=== PATIENT | female | born 1950 | race African-American/Black ===

== ENCOUNTER 2017-12-02 12:32 | Outpatient (CLI) | payer MEDICARE | END 2017-12-02 12:33 | disposition home or self-care (01) | LOC: BICULT 12:32 | PROVIDERS: ATTEND Internal Medicine Nephrology | DX: I12.9 Hypertensive chronic kidney disease with stage 1 through stage 4 chronic kidney disease, or unspecified chronic kidney disease (principal); N18.3 Chronic kidney disease, stage 3 (moderate) | CPT/HCPCS: 76770 ==

== ENCOUNTER 2018-03-10 22:42 | Emergency (ER) | payer MEDICARE ==
[2018-03-10 23:29] LABS: #Basophils 0.1 thou/uL (0.0-0.2); #Eosinphils 0.1 thou/uL (0.0-0.7); #Lymphocytes 4.4 thou/uL (1.20-3.40); #Monocytes 0.9 thou/uL (0.11-0.59); #Neutrophils 9.3 thou/uL (1.40-6.50); %Basophils 0.8 % (0.0-1.0); %Eosinophils 0.9 % (0.0-10.0); %Lymphocytes 29.6 % (21.0-51.0); %Monocytes 6.2 % (0.0-10.0); %Neutrophils 62.5 % (42.0-75.0); Hemoglobin 11.7 g/dL (12.0-16.0); Mean Corpuscular HGB CONC 34.4 g/dL (32.0-36.0); Mean Corpuscular Hemoglobin 26.9 pg (27.0-31.0); Mean Corpuscular Volume 78.4 fl (81.0-99.0); Mean Platelet Volume 8.9 fL (7.4-10.4); Platelet Count 209 thou/uL (130-400); RBC Distribution Width 16.3 % (11.5-14.5); Red Blood Cell (RBC) Count 4.35 mill/uL (4.20-5.40); White Blood Cell (WBC) Count 14.9 thou/uL (4.8-10.8)
[2018-03-10 23:46] LABS: ALT (SGPT) 11 U/L (8-55); AST (SGOT) 11 U/L (5-34); Albumin 4.5 g/dL (3.4-4.8); Alkaline Phosphatase 90 U/L (40-150); Anion Gap 17 mmol/L (10-20); BUN (Urea Nitrogen) 33 mg/dL (9.8-20.1); Bilirubin, Total 0.2 mg/dL (0.2-1.2); Calc. Creatinine Clearance 0 mL/min (70-130); Calcium 9.6 mg/dL (7.8-10.44); Carbon Dioxide 20 mmol/L (23-31); Chloride 102 mmol/L (98-107); Estimated GFR-MDRD 42; Globulin 3.7 g/dL (2.4-3.5); Glucose 216 mg/dL (80-115); Potassium 4.7 mmol/L (3.5-5.1); Protein, Total 8.2 g/dL (6.0-8.3); Sodium 134 mmol/L (136-145)
[2018-03-10 23:57] LABS: Base Excess-Venous -0.1 mmol/L (0 (+/- 2.5)); Bicarbonate (HCO3v) 24.6 mmol/L (1.0-85.0); CO2 Tension (PvCO2) 39.2 mmHg (41.0-51.0); Calcium, Ionized 1.09 mmol/L (1.12-1.32); Hemoglobin - Calc 16.4 g/dL (12.0-18.0); O2 Tension (PvO2) 31.1 mmHg (35.0-45.0); Potassium 7.1 mmol/L (3.4-4.7); T. Carbon Dioxide 25.8 mmol/L (1.0-85.0); pH (Venous) 7.405 (7.35-7.45); vO2 Saturation-calc 60.3 % (94-98)
[2018-03-11] LABS: Bilirubin Negative (Negative); Blood, Urine Negative (Negative); Clarity CLEAR (Clear); Glucose, Urine (Dipstick) Negative (Negative); Leukocyte Trace (Negative); Nitrite Negative (Negative); Protein, Urine (Dipstick) Negative (Neg-Trace); Specific Gravity, Urine 1.009 (1.002-1.036); Urobilinogen 0.2 mg/dL (0.2-1.0); pH, Urine 5.5 (5.0-9.0)
[2018-03-11 00:03] LABS: Bacteria/HPF None Seen HPF (None Seen); Hyaline Casts/LPF 0-3 HYALINE CAST LPF (0-3 Hyaline); RBC/HPF 0-3 HPF (0-3); Squamous Epithelial 0-3 HPF (0-3); WBC/HPF 0-3 HPF (0-3)
[2018-03-11] MEDS ORDERED: hydrALAZINE 20 MG/ML VIAL ONE (00:15)
[2018-03-11] MEDS ORDERED: Insulin Regular 300 UNITS/3 ML VIAL ONE (00:15)
== END 2018-03-11 00:58 | disposition home or self-care (01) ==
LOC: ERS 22:42
DX: E11.65 Type 2 diabetes mellitus with hyperglycemia (principal); I34.1 Nonrheumatic mitral (valve) prolapse
CPT/HCPCS: 36415; 36416; 81003; 81015; 82010; 82330; 82803; 85025; 96360; J0360; J1815

== ENCOUNTER 2018-09-29 12:29 | Observation (INO) | payer MEDICARE ==
[2018-09-29] MEDS ORDERED: Nitroglycerin 2% Ointment 1 INCH/1 GM Packet ONE (13:08)
[2018-09-29] MEDS ORDERED: Metoclopramide HCl 10 MG/2 ML VIAL ONE (13:08)
[2018-09-29] MEDS ORDERED: diphenhydrAMINE 50 MG/ML VIAL ONE (13:11)
[2018-09-29 13:15] LABS: #Basophils 0.1 thou/uL (0.0-0.2); #Eosinphils 0.2 thou/uL (0.0-0.7); #Lymphocytes 3.4 thou/uL (1.20-3.40); #Monocytes 0.4 thou/uL (0.11-0.59); #Neutrophils 4.7 thou/uL (1.40-6.50); %Basophils 1.5 % (0.0-1.0); %Eosinophils 2.3 % (0.0-10.0); %Monocytes 4.8 % (0.0-10.0); %Neutrophils 53.5 % (42.0-75.0); Hemoglobin 12.2 g/dL (12.0-16.0); Mean Corpuscular HGB CONC 33.3 g/dL (32.0-36.0); Mean Corpuscular Hemoglobin 25.9 pg (27.0-31.0); Mean Corpuscular Volume 77.8 fL (78.0-98.0); Platelet Count 204 thou/uL (130-400); Red Blood Cell (RBC) Count 4.69 mill/uL (4.20-5.40); White Blood Cell (WBC) Count 8.9 thou/uL (4.8-10.8)
--- NOTE | 2018-09-29 13:24 | RAD ---
PORTABLE CHEST 1 VIEW: DATE: 09/29/2018. TIME: 1:01 p.m. HISTORY: Chest pain and shortness of breath. FINDINGS: Comparison is made with the arteriovenous malformation of 12/15/2016. The heart size is normal. The lungs are expanded without focal areas of consolidation, pneumothorace s, or pleural effusions. IMPRESSION: No radiographic evidence of acute cardiopulmonary process. POS: OFF
[2018-09-29 13:27] LABS: ALT (SGPT) 27 U/L (8-55); AST (SGOT) 22 U/L (5-34); Albumin 4.6 g/dL (3.4-4.8); Alkaline Phosphatase 109 U/L (40-150); Anion Gap 18 mmol/L (10-20); BUN (Urea Nitrogen) 29 mg/dL (9.8-20.1); Bilirubin, Total 0.4 mg/dL (0.2-1.2); CK (CPK) 59 U/L (29-168); Calc. Creatinine Clearance 0 mL/min (70-130); Calcium 10.4 mg/dL (7.8-10.44); Carbon Dioxide 18 mmol/L (23-31); Chloride 106 mmol/L (98-107); Estimated GFR-MDRD 38; Globulin 4.3 g/dL (2.4-3.5); Glucose 196 mg/dL (80-115); Lipase 70 U/L (8-78); Potassium 4.3 mmol/L (3.5-5.1); Protein, Total 8.9 g/dL (6.0-8.3); Sodium 138 mmol/L (136-145)
--- NOTE | 2018-09-29 13:30 | CT ---
CT BRAIN WITHOUT CONTRAST: HISTORY: Headache. FINDINGS: No evidence of acute infarct, hemorrhage, midline shift, or abnormal extraaxial fluid collections is seen. The ventricular size is appropriate and the basilar cisterns patent. The bony calvarium is in tact. The visualized paranasal sinuses and mastoid air cells are well aerated. IMPRESSION: NO CT evidence of acute intracranial process. POS: OFF
[2018-09-29 13:46] LABS: Base Excess-Venous -3.7 mmol/L (0 (+/- 2.5)); Bicarbonate (HCO3v) 22.8 mmol/L (22.0-29.0); CO2 Tension (PvCO2) 46.4 mmHg (41.0-51.0); Calcium, Ionized 1.21 mmol/L (1.12-1.32); Hemoglobin - Calc 11.9 g/dL (12.0-18.0); O2 Tension (PvO2) 56.3 mmHg (35.0-45.0); Potassium 4.3 mmol/L (3.4-4.7); T. Carbon Dioxide 24.2 mmol/L (1.0-85.0); pH (Venous) 7.299 (7.35-7.45); vO2 Saturation-calc 85.5 % (94-98)
--- NOTE | 2018-09-29 14:55 | PDOC.FPRHP ---
- History of Present Illness Chief Complaint: CP, HORTON History of Present Illness: This is a 67 yo who came in with chest pain going on for 1-2 weeks. Pertinent PMH of DM, cath 2 years ago with no stents per patient, echo 09.14.18 patient does not know results, and HTN. Patient states pain is left sided, comes and goes, radiates to neck and l shoulder, made worse with movement. Patient states she has had occassional cough. She sleeps elevated on pillows at night and gets more short of breath when laying down. Headache described as band-like going on for 1-2 weeks. Worse with light, sounds. Occasional blurry vision. Charecterized as sharp. Made somewhat better with tylenol. Nausea, but no vomiting. ED Course: NS 1L, reglan, benadryl, nitropaste - Allergies/Adverse Reactions Allergies Allergy/AdvReac Type Severity Reaction Status Date / Time erythromycin base Allergy Verified 12/15/16 23:10 Iodinated Contrast- Oral and Allergy Anaphylaxis Verified 01/18/17 17:13 IV Dye [Iodinated Contrast Media - Oral and] Sulfa (Sulfonamide Allergy Verified 12/15/16 23:10 Antibiotics) - Home Medications Medication Instructions Recorded Confirmed Type Aspirin [Aspirin Chewable Tablet] 81 mg PO DAILY 12/15/16 01/18/17 History Cyclobenzaprine [Flexeril] 10 mg PO TID PRN 12/15/16 01/18/17 History Hydrochlorothiazide 12.5 mg PO DAILY 12/15/16 01/18/17 History Lisinopril 10 mg PO DAILY 12/15/16 01/18/17 History Metoprolol Tartrate 50 mg PO BID 12/15/16 01/18/17 History Omeprazole 40 mg PO DAILY 12/15/16 01/18/17 History metFORMIN HCl [Metformin ER 500 mg PO BID 12/15/16 01/18/17 History Gastric] Atorvastatin Calcium 40 mg PO HS 09/29/18 09/29/18 History NIFEdipine [Nifedipine ER] 90 mg PO DAILY 09/29/18 09/29/18 History sitaGLIPtin Phosphate [Januvia] 25 mg PO DAILY 09/29/18 09/29/18 History - History PMHx: migraines, DM, HTN, GERD PSHx: cath 2 years ago no stents, echo 09/14/18, hysterctomy, benign rt breast mass, hernia FHx: denies fm hx of heart disease Social: no tobacco, no alcohol, no drugs - Review of Systems General: denies: fever/chills, weight/appetite/sleep changes, fatigue Eyes: reports: vision changes (see hpi). denies: eye pain ENT: denies: nasal congestion, rhinorrhea Respiratory: denies: cough, congestion, shortness of breath, exercise intolerance Cardiovascular: reports: chest pain, orthopnea. denies: palpitation, edema Gastrointestinal: reports: nausea. denies: vomiting, diarrhea, constipation, abdominal pain Genitourinary: denies: dysuria, polyuria Skin: denies: rashes, itching Musculoskeletal: denies: pain, arthritis/arthralgias Neurological: denies: numbness, weakness - Vital signs BP: 142/82 HR: 71 RR: 20 Tmax: 98.2 Pox: 99% on RA Wt: 72kg General: NAD, alert and oriented x3 HEENT: PERRLA, EOMI, normal sclera, oropharynx without erythema or exudate, T Neck: Supple. Full ROM. Heart/Cardiovascular System: No r/m/g. RRR. Cap refill < 3 seconds, good pulses in all extremities Lungs/Respiratory System: clear to auscultation bilaterally. No increased work of breathing. Room air. Abdomen/Gastro-Intestinal System: non-tender, normal bowel sounds, no masses, no organomegaly, old surgical scar left inguinal hernia Extremeties: Warm extremities. No cyanosis or edema. Neuro: No gross deficits appreciated. CN 2-12 grossly intact Psychiatry: Awake, Alert and cooperative with exam Skin/ Integumentory: No lesions, rashes, or ulcers Musculoskeletal: Full ROM, Strength 5/5 in all 4 extremities FMR H&P: Results - Labs Result Diagrams: 09/29/18 12:58 09/29/18 12:58 Lab results: WBC 8.9 thou/uL (4.8-10.8) 09/29/18 12:58 Hgb 12.2 g/dL (12.0-16.0) 09/29/18 12:58 Hct 36.5 % (36.0-47.0) 09/29/18 12:58 MCV 77.8 fL (78.0-98.0) L 09/29/18 12:58 Plt Count 204 thou/uL (130-400) 09/29/18 12:58 Neutrophils % 53.5 % (42.0-75.0) 09/29/18 12:58 VBG pCO2 46.4 mmHg (41.0-51.0) 09/29/18 13:43 VBG pO2 56.3 mmHg (35.0-45.0) H 09/29/18 13:43 Sodium 138 mmol/L (136-145) 09/29/18 12:58 Potassium 4.3 mmol/L (3.5-5.1) 09/29/18 12:58 Chloride 106 mmol/L (98-107) 09/29/18 12:58 Carbon Dioxide 18 mmol/L (23-31) L 09/29/18 12:58 BUN 29 mg/dL (9.8-20.1) H 09/29/18 12:58 Creatinine 1.62 mg/dL (0.6-1.1) H 09/29/18 12:58 Glucose 196 mg/dL (80-115) H 09/29/18 12:58 Calcium 10.4 mg/dL (7.8-10.44) 09/29/18 12:58 Total Bilirubin 0.4 mg/dL (0.2-1.2) 09/29/18 12:58 AST 22 U/L (5-34) 09/29/18 12:58 ALT 27 U/L (8-55) 09/29/18 12:58 Alkaline Phosphatase 109 U/L (40-150) 09/29/18 12:58 Creatine Kinase 59 U/L (29-168) 09/29/18 12:58 B-Natriuretic Peptide 43.4 pg/mL (0-100) 09/29/18 12:58 Serum Total Protein 8.9 g/dL (6.0-8.3) H 09/29/18 12:58 Albumin 4.6 g/dL (3.4-4.8) 09/29/18 12:58 Lipase 70 U/L (8-78) 09/29/18 12:58 FMR H&P: A/P - Problem List (1) Stable angina Current Visit: Yes Status: Acute Code(s): I20.8 - OTHER FORMS OF ANGINA PECTORIS (2) Peripheral neuropathy Current Visit: Yes Status: Acute Code(s): G62.9 - POLYNEUROPATHY, UNSPECIFIED (3) Diabetes type 2, controlled Current Visit: No Status: Acute Code(s): E11.9 - TYPE 2 DIABETES MELLITUS WITHOUT COMPLICATIONS (4) GERD (gastroesophageal reflux disease) Current Visit: No Status: Acute Code(s): K21.9 - GASTRO-ESOPHAGEAL REFLUX DISEASE WITHOUT ESOPHAGITIS Qualifiers: (5) HTN (hypertension) Current Visit: No Status: Acute Code(s): I10 - ESSENTIAL (PRIMARY) HYPERTENSION Qualifiers: (6) Peptic ulcer disease Current Visit: No Status: Acute Code(s): K27.9 - PEPTIC ULC, SITE UNSP, UNSP AC OR CHR, W/O HEMOR OR PERF - Plan # Stable Angina -HEART: 6 - negative EKG, negative trop, will trend trop - consulted cardiology, appreciate recs - Cath 2 years ago no stents, Echo 09/14/18 w/ Dr. Ryan - stress vs cath - ASA, statin # DM - last A1C 5.3 - januvia, metformin - SSI, Accuchecks - b-hydroxybutyrate 0.39, pH 7.3, anion gap 17 - will re-check BMP at 1600 # Headache, suspect migraine - s/p reglan, benadryl, 1L NS in ED - improving # Peripheral Neuropathy - pins and needles in L toe - suspect 2/2 DM - consider gabapentin if needed # GERD Diet: NPO until Cards eval Fluids: tko Code: full Dispo: 1-2 days pending cards eval FMR H&P: Upper Level - Plan Date/Time: 09/29/18 1450 I, [], have evaluated this patient and agree with findings/plan as outlined by manager of internal audit resident. Pertinent changes/additions are listed here. Addendum - Attending - Attending Attestation Date/Time: 09/29/18 1610 I personally evaluated the patient and discussed the management with Dr. Fitzpatrick. I agree with and repeated the History, Examination, Assessment and Plan documented above with any addition or exceptions noted below. Typical cp with pressure, radiation, w/w exertion b/w rest and NTG and a/w nausea/diaphoresis. Will d/w cards. I feel bhb not 2/2 DKA. Will hydrate, recheck BMP, send UA.
[2018-09-29 15:03] LABS: Bilirubin Negative (Negative); Blood, Urine Negative (Negative); Clarity CLOUDY (Clear); Glucose, Urine (Dipstick) Negative (Negative); Leukocyte Negative (Negative); Nitrite Negative (Negative); Protein, Urine (Dipstick) Negative (Neg-Trace); Urobilinogen 0.2 mg/dL (0.2-1.0); pH, Urine 5.5 (5.0-9.0)
[2018-09-29] MEDS ORDERED: Ondansetron PF 4 MG/2 ML Vial IVP PRN (15:33)
[2018-09-29] MEDS ORDERED: Zolpidem Tartrate 5 MG TAB PO PRN (15:33)
[2018-09-29] MEDS ORDERED: Dextrose 5% in Water 1,000 ML IV PRN (15:33)
[2018-09-29] MEDS ORDERED: HumaLOG 300 UNITS/3 ML VIAL SC PRN (15:33)
[2018-09-29] MEDS ORDERED: Dextrose 50% Abboject 50 ML SYRINGE SLOW IVP PRN (15:33)
[2018-09-29 15:43] VITALS: BMI 29.4
[2018-09-29] MEDS ORDERED: Enoxaparin Sodium 40 MG/0.4 ML SYRINGE SC SCH (15:45)
[2018-09-29] MEDS ORDERED: Cyclobenzaprine 10 MG TAB PO PRN (16:00)
[2018-09-29 16:32] LABS: Anion Gap 17 mmol/L (10-20); BUN (Urea Nitrogen) 28 mg/dL (9.8-20.1); Calc. Creatinine Clearance 49 mL/min (70-130); Calcium 9.6 mg/dL (7.8-10.44); Carbon Dioxide 17 mmol/L (23-31); Chloride 111 mmol/L (98-107); Estimated GFR-MDRD 50; Glucose 74 mg/dL (80-115); Potassium 4.7 mmol/L (3.5-5.1); Sodium 140 mmol/L (136-145)
[2018-09-29 16:39] LABS: Troponin I Less than 0.010 ng/mL (< 0.028)
[2018-09-29] MEDS: Lactated Ringer's 1,000 ML IV SCH ×2 (16:50→23:57)
[2018-09-29] MEDS: Acetaminophen 325 MG TAB PO PRN ×2 (17:45→23:58)
[2018-09-29 20:00] LABS: Troponin I 0.019 ng/mL (< 0.028)
[2018-09-29] MEDS: metFORMIN XR 500 MG TAB PO SCH (20:52)
[2018-09-29] MEDS: Metoprolol Tartrate 50 MG TAB PO SCH (20:52)
[2018-09-29] MEDS ORDERED: Lisinopril 10 MG TAB PO SCH (21:00)
--- NOTE | 2018-09-29 21:12 | CON ---
DATE OF CONSULTATION: 09/29/2018 REASON FOR CONSULTATION: Chest pain. PRIMARY OTR OWNER OPERATOR TRUCK DRIVER: Jake Ryan MD HISTORY OF PRESENT ILLNESS: Ms. Del Valle is a very pleasant 67-year-old female, who comes to the hospital for 2-week history of chest pain. She has sudden pain like a stabbing pain in the left chest under her left breast radiating to the middle area. This is the same pain she had 2 years ago, at which point we did a heart catheterization that showed just mild coronary artery disease. She had a reaction to the contrast dye after her catheterization, had to be admitted overnight. She is doing well. She currently is pain free. Her troponins have been negative, and her EKG is unremarkable. PAST MEDICAL HISTORY: 1. Mild coronary artery disease on heart cath 2 years ago. 2. Migraine headaches. 3. Type 2 diabetes. 4. Hypertension. 5. GERD. PAST SURGICAL HISTORY: 1. Cath 2 years ago with mild coronary artery disease only. 2. Hysterectomy. 3. Right breast mass. 4. Hernia repair. FAMILY HISTORY: No early coronary artery disease. SOCIAL HISTORY: No alcohol, tobacco, or drugs. OUTPATIENT MEDICATIONS: 1. Aspirin 81 a day. 2. Cyclobenzaprine. 3. Hydrochlorothiazide with lisinopril 10/12.5 mg a day. 4. Metoprolol tartrate 50 mg b.i.d. 5. Omeprazole 40 mg a day. 6. Metformin 500 mg b.i.d. 7. Atorvastatin 40 mg at bedtime. 8. Nifedipine recently increased to 90 mg a day. 9. Januvia 25 mg a day. ALLERGIES: 1. ERYTHROMYCIN. 2. IODINE CAUSES MOUTH SWELLING AND SHORTNESS OF BREATH. 3. SULFA DRUGS. REVIEW OF SYSTEMS: A 12-point review of systems was done, was all negative unless stated in the history of present illness. PHYSICAL EXAMINATION: VITAL SIGNS: Temperature 98.2, pulse 70, respiratory rate 18, saturating 97% on room air, blood pressure 147/63. GENERAL: Awake, alert, and oriented x3. No distress. HEENT: Normocephalic and atraumatic. NECK: Supple. LUNGS: Clear. CARDIOVASCULAR: S1, S2. No S3 or S4. No murmurs. ABDOMEN: Soft. Positive bowel sounds. EXTREMITIES: No edema. SKIN: Warm and dry. LABORATORY DATA: Laboratory work was reviewed. CBC was unremarkable. ABG was reviewed. Chemistry; creatinine was 1.6 on admission, 1.3 now after IV fluids. UA was negative. Toxicology, beta hydroxybutyrate was 0.39. Her glucose was 74, and 96 on admission. TSH was normal. Lipase was normal. Troponin I was negative x3. BNP was 43. Albumin of 4.6. DIAGNOSTIC DATA: EKG was nonischemic. ASSESSMENT AND PLAN: 1. Chest pain, noncardiac. 2. Hypertension, labile. She has noted episodes of blood pressure in the 150s and then goes down to the 80s/40s, may have been the reason for her elevated creatinine. I have asked her to space out her medications. She will take nifedipine in the evening and lisinopril-hydrochlorothiazide in the morning and metoprolol is b.i.d. 3. [id number] kidney injury: Likely related to episodes of low blood pressure from medications. Continue IV fluids till tomorrow morning. 4. Mild coronary artery disease, stable, no acute coronary syndrome. No further recommendations at this time. CV is stable. We will follow up with her in 1 month. Thank you for letting me to participate in the care of your patient. We will sign off. Please call with any questions. Job ID: [id number]
[2018-09-29] MEDS: NIFEdipine XL 90 MG TAB PO SCH (22:01)
[2018-09-30] MEDS: NIFEdipine XL 90 MG TAB PO SCH (00:17)
[2018-09-30] MEDS ORDERED: traMADol HCl 50 MG TAB PO PRN (01:52)
[2018-09-30 06:06] LABS: #Basophils 0.1 thou/uL (0.0-0.2); #Eosinphils 0.3 thou/uL (0.0-0.7); #Monocytes 0.5 thou/uL (0.11-0.59); #Neutrophils 5.3 thou/uL (1.40-6.50); %Basophils 0.9 % (0.0-1.0); %Eosinophils 2.8 % (0.0-10.0); %Lymphocytes 32.9 % (21.0-51.0); %Monocytes 5.8 % (0.0-10.0); %Neutrophils 57.6 % (42.0-75.0); Hemoglobin 10.3 g/dL (12.0-16.0); Mean Corpuscular HGB CONC 33.5 g/dL (32.0-36.0); Mean Corpuscular Hemoglobin 26.2 pg (27.0-31.0); Mean Corpuscular Volume 78.3 fL (78.0-98.0); Platelet Count 181 thou/uL (130-400); RBC Distribution Width 16.9 % (11.5-14.5); Red Blood Cell (RBC) Count 3.94 mill/uL (4.20-5.40); White Blood Cell (WBC) Count 9.1 thou/uL (4.8-10.8)
[2018-09-30 06:27] LABS: Anion Gap 14 mmol/L (10-20); BUN (Urea Nitrogen) 26 mg/dL (9.8-20.1); Calc. Creatinine Clearance 53 mL/min (70-130); Calcium 9.5 mg/dL (7.8-10.44); Carbon Dioxide 19 mmol/L (23-31); Chloride 110 mmol/L (98-107); Estimated GFR-MDRD 54; Glucose 147 mg/dL (80-115); Potassium 4.3 mmol/L (3.5-5.1); Sodium 139 mmol/L (136-145)
[2018-09-30] MEDS ORDERED: Metoclopramide HCl 10 MG TAB PO SCH (07:30)
[2018-09-30 07:54] VITALS: BP 143/66; TEMP 99
[2018-09-30] MEDS: Metoprolol Tartrate 50 MG TAB PO SCH (08:23)
[2018-09-30] MEDS: metFORMIN XR 500 MG TAB PO SCH (08:23)
[2018-09-30] MEDS: Lactated Ringer's 1,000 ML IV SCH (08:24)
--- NOTE | 2018-09-30 08:49 | PDOC.FM ---
- Subjective Subjective: This morning patient states she is not having chest pain but still having mild headache. She denies visual changes, N/V/D, neuro-deficit. No fevers, chills, or sweats. Patient states she feels ready to go home w/ some reglan. - Objective Vital Signs & Weight: Vital Signs (12 hours) Temp Pulse Resp BP Pulse Ox 09/30/18 08:23 67 09/30/18 07:53 99.0 F 67 20 143/66 H 99 09/30/18 04:17 98.3 F 62 16 121/61 97 09/30/18 01:47 63 129/63 09/30/18 00:17 70 09/29/18 23:58 98.5 F 64 18 175/71 H 97 Weight Weight 72.983 kg I&O: 09/29/18 09/30/18 10/01/18 06:59 06:59 06:59 Intake Total 3850 Output Total 1150 Balance 2700 Result Diagrams: 09/30/18 05:20 09/30/18 05:20 Phys Exam - Physical Examination Constitutional: NAD HEENT: PERRLA, moist MMs Respiratory: no wheezing, clear to auscultation bilateral Cardiovascular: RRR 2/6 murmur Gastrointestinal: soft, non-tender, no distention, positive bowel sounds Musculoskeletal: no edema, pulses present Neurological: non-focal, moves all 4 limbs Psychiatric: normal affect, A&O x 3 Skin: no rash, cap refill <2 seconds Dx/Plan (1) Stable angina Code(s): I20.8 - OTHER FORMS OF ANGINA PECTORIS Status: Acute (2) Peripheral neuropathy Code(s): G62.9 - POLYNEUROPATHY, UNSPECIFIED Status: Acute (3) Diabetes type 2, controlled Code(s): E11.9 - TYPE 2 DIABETES MELLITUS WITHOUT COMPLICATIONS Status: Acute (4) GERD (gastroesophageal reflux disease) Code(s): K21.9 - GASTRO-ESOPHAGEAL REFLUX DISEASE WITHOUT ESOPHAGITIS Status: Acute Qualifiers: (5) HTN (hypertension) Code(s): I10 - ESSENTIAL (PRIMARY) HYPERTENSION Status: Acute Qualifiers: (6) Peptic ulcer disease Code(s): K27.9 - PEPTIC ULC, SITE UNSP, UNSP AC OR CHR, W/O HEMOR OR PERF Status: Acute - Plan Plan: # Non-cardiac chest pain -HEART: 6 - negative EKG, negative trop, trop .010-> .010 -> .019 - BP meds adjusted per dr murray, f/u in 1 mo - stress vs cath - ASA, statin # DM - last A1C 5.3 - gap 14 this am - januvia, metformin - SSI, Accuchecks # Headache, suspect migraine - s/p reglan, benadryl, 1L NS in ED - improving, po reglan # Peripheral Neuropathy - pins and needles in L toe - suspect 2/2 DM - consider gabapentin if needed # GERD Diet: NPO until Cards eval Fluids: tko Code: full Dispo: d/c this am Addendum - Attending - Attending Attestation Date/Time: 09/30/18 8820 I personally evaluated the patient and discussed the management with Dr. Fitzpatrick. I agree with the History, Examination, Assessment and Plan documented above with any addition or exceptions noted below. The patient has been seen by cardiology and is cleared for discharge. She has f /u outpt with cards already scheduled.
[2018-09-30] MEDS ORDERED: Lisinopril/Hydrochlorothiazide 20 mg/12.5 mg Tablet PO SCH (09:00)
[2018-09-30] MEDS ORDERED: Aspirin 325 MG TAB PO SCH (09:00)
[2018-09-30] MEDS ORDERED: Hydrochlorothiazide 25 MG TAB PO SCH (09:00)
--- NOTE | 2018-10-01 05:26 | DIS ---
DATE OF ADMISSION: 09/29/2018 DATE OF DISCHARGE: 09/30/2018 RESIDENT: Taiwo Fitzpatrick MD ADMITTING ATTENDING: Saman Alford MD DISCHARGE ATTENDING: Jossy Gambino MD CONSULTS: Cardiology, Dr. Ryan. PROCEDURES: None. PRIMARY DIAGNOSIS: Noncardiac chest pain. SECONDARY DIAGNOSES: Migraine, type 2 diabetes mellitus, peripheral neuropathy, gastroesophageal reflux disease, hypertension, peptic ulcer disease. DISCHARGE MEDICATIONS: 1. Metoclopramide 10 mg q.6 hours p.r.n. for headache, otherwise no changes to home medications. 2. She will take nifedipine 90 mg at nighttime as discussed per Dr. Ryan. 3. Aspirin 81 mg. 4. Atorvastatin 40 mg. 5. Cyclobenzaprine 10 mg p.r.n. 6. Lisinopril and hydrochlorothiazide 20/12.5. 7. Metformin 500 mg. 8. Metoprolol 50 mg b.i.d. 9. Omeprazole 40 mg. 10. Januvia 25 mg. DISCONTINUED MEDICATIONS: None. HISTORY OF PRESENT ILLNESS/HOSPITAL COURSE: This is a 67-year-old female, who came in with 1 to 2 weeks of left-sided chest pain radiated to the left arm and to her neck that was made worse with exertion. She denied recent fever, chills, sweats , or cough. She had a clean cath 2 years ago per her report. She had a recent echo [address] Ryan. She also stated that she had migraine, which had been going on for 1 week or so, getting somewhat worse. The patient was evaluated by Dr. Ryan. Troponins were negative x3. Dr. Ryan diagnosed the patient with noncardiac chest pain and recommended followup in 3 to 4 weeks. The patient's headache improved with use of Reglan and Benadryl. Ultimately, the patient was discharged for a followup with PCP and Dr. Ryan. DISPOSITION: Stable. DISCHARGE INSTRUCTIONS: 1. Location: Home. 2. Diet: Regular. 3. Activity: As tolerated. 4. Followup: With Dr. Aisha Tinajero, PCP. Dr. Ryan of Cardiology on 2018. Job ID: [id number] MTDD
== END 2018-09-30 11:10 | disposition home or self-care (01) ==
LOC: ERS 12:29 → 2SW 15:26
PROVIDERS: ADMIT Emergency Medicine; ATTEND Emergency Medicine
DX: R07.89 Other chest pain (principal); G43.909 Migraine, unspecified, not intractable, without status migrainosus; I12.9 Hypertensive chronic kidney disease with stage 1 through stage 4 chronic kidney disease, or unspecified chronic kidney disease; E11.22 Type 2 diabetes mellitus with diabetic chronic kidney disease; N18.9 Chronic kidney disease, unspecified; N17.9 Acute kidney failure, unspecified; I25.118 Atherosclerotic heart disease of native coronary artery with other forms of angina pectoris; K21.9 Gastro-esophageal reflux disease without esophagitis; E11.42 Type 2 diabetes mellitus with diabetic polyneuropathy; K27.9 Peptic ulcer, site unspecified, unspecified as acute or chronic, without hemorrhage or perforation; Z90.710 Acquired absence of both cervix and uterus; Z88.1 Allergy status to other antibiotic agents; Z88.2 Allergy status to sulfonamides; Z91.041 Radiographic dye allergy status; Z79.82 Long term (current) use of aspirin; Z79.84 Long term (current) use of oral hypoglycemic drugs; Z79.899 Other long term (current) drug therapy; Z98.890 Other specified postprocedural states
CPT/HCPCS: 70450; 71045; 80048 ×2; 81003; 82010; 82330; 82435; 82550; 82803; 82962 ×2; 83690; 83880; 84132; 84295; 84484 ×2; 85014; 85025; 90662; 93005; 94760; 96361 ×2; 96365; 96372; 96375; 99285; G0008; G0378 ×2; 36415; 36416; 80053; 84443; 90471; J1200; J1650; J2765

== ENCOUNTER 2018-10-05 07:11 | Outpatient (CLI) | payer MEDICARE ==
--- NOTE | 2018-10-05 14:47 | NM ---
GASTRIC EMPTYING STUDY: Date: 10/05/18 INDICATION: Epigastric pain. TECHNIQUE/FINDINGS: Patient was given 1.9 mCi of technetium labeled sulfur colloid orally with eggs for solid phase empty ing study. 30 Minutes: 1% emptying 1 Hour: 34% emptying 2 Hours: 56% emptying 3 Hours: 69% emptying. 4 Hours: 100% emptying T-1/2: 100 minutes. IMPRESSION: T-1/2 within normal range. POS: EDIL
== END 2018-10-05 07:12 | disposition home or self-care (01) ==
LOC: NM 07:11
PROVIDERS: ATTEND Internal Medicine Gastroenterology
DX: R10.33 Periumbilical pain (principal); R10.13 Epigastric pain
CPT/HCPCS: 78264; A9541

== ENCOUNTER 2019-01-04 08:07 | Outpatient (CLI) | payer MEDICARE ==
--- NOTE | 2019-01-04 09:30 | CT ---
EXAM: CT abdomen and pelvis with IV contrast PROVIDED CLINICAL HISTORY: Right-sided abdominal pain COMPARISON: 05/18/2012 FINDINGS: The visualized lung bases are free of significant opacity. The liver, spleen, pancreas, kidneys and adrenal glands demonstrate an unremarkable CT appearance. There is no bowel dilatation, inflammatory fat stranding, free fluid or free air apparent. Colonic di verticula involve the descending colon proximally without CT evidence for diverticulitis. Scattered atherosclerotic vascular calcifications are seen. The osseous structures demonstrate no con cerning osteoblastic or osteolytic lesions. IMPRESSION: No evidence for an acute process.
== END 2019-01-04 08:08 | disposition home or self-care (01) ==
LOC: CT 08:07
PROVIDERS: ATTEND Physician Assistant Medical
DX: R10.33 Periumbilical pain (principal); R10.31 Right lower quadrant pain; R10.11 Right upper quadrant pain; R19.4 Change in bowel habit; K57.30 Diverticulosis of large intestine without perforation or abscess without bleeding
CPT/HCPCS: 74177; 82565

== ENCOUNTER 2019-07-19 08:44 | Outpatient (CLI) | payer MEDICARE ==
--- NOTE | 2019-07-19 11:31 | CT ---
CT ABDOMEN AND PELVIS WITH IV CONTRAST: INDICATIONS: Right abdominal pain. COMPARISON: CT abdomen and pelvis from 01/04/2019. TECHNIQUE: Oral contrast was administered. FINDINGS: The lung bases are clear. The liver, spleen and pancreas are unremarkable. There is abnormal density layering in the gallbladder with a fluid-fluid level, suggesting dense grav el or sludge within the gallbladder. Correlate with ultrasound. Adrenal glands are normal. Kidneys are unremarkable. Urinary bladder unremarkable. Small bowel loops of normal caliber. Appendix appears normal. Colon unremarkable. Aorta of normal davie iber. No adenopathy or fluid. Images through the pelvis show evidence of a hysterectomy. IMPRESSION: 1. Abnormal densities layering in the gallbladder, concerning for dense sludge or gravel. Consider ga llbladder ultrasound for further evaluation. 2. No acute intra-abdominal process identified. POS: TPC
== END 2019-07-19 08:45 | disposition home or self-care (01) ==
LOC: CT 08:44
PROVIDERS: ATTEND Physician Assistant Medical
DX: K21.9 Gastro-esophageal reflux disease without esophagitis (principal); R10.31 Right lower quadrant pain; K57.92 Diverticulitis of intestine, part unspecified, without perforation or abscess without bleeding; R19.4 Change in bowel habit; R93.2 Abnormal findings on diagnostic imaging of liver and biliary tract
CPT/HCPCS: 74177; 82565

== ENCOUNTER 2019-08-07 09:27 | Outpatient (CLI) | payer MEDICARE ==
--- NOTE | 2019-08-07 10:33 | ULT ---
ULTRASOUND GALLBLADDER RIGHT UPPER QUADRANT: CLINICAL HISTORY: Right upper quadrant pain. COMPARISON: None. CORRELATION: Abdomen and pelvic CT 07/19/2019. FINDINGS: Pancreas: The head of the pancreas has a normal echotexture. The remainder the pancreas is obscured by bowel gas. Pancreatic duct measures 0.2 cm. Liver:Normal parenchymal echotexture. No hepatic masses or intrahepatic biliary dilatation. The conto ur of the hepatic margin is maintained. Right hepatic lobe measures 16.3 cm. Gallbladder: There does appear to be sludge and small stones within the lumen of the gallbladder. Gal lbladder wall is not thickened. No pericholecystic fluid. Jones's sign:Negative. Portal Vein: Patent. Appropriate directional flow. Bile ducts: Common bile duct diameter us 0.52 cm. Right kidney: No hydronephrosis. Right kidney measures 8.6 cm cm in length. IMPRESSION: 1. Sonographic evidence of cholelithiasis without evidence of cholecystitis. 2. Normal caliber common bile duct. 3. Upper normal caliber of the visualized pancreatic duct. Further evaluation with MRCP if clinically warranted. Transcribed Date/Time: 08/07/2019 10:44 AM
== END 2019-08-07 09:28 | disposition home or self-care (01) ==
LOC: ULT 09:27
PROVIDERS: ATTEND Physician Assistant Medical
DX: K57.30 Diverticulosis of large intestine without perforation or abscess without bleeding (principal); R10.11 Right upper quadrant pain; K21.9 Gastro-esophageal reflux disease without esophagitis; K80.20 Calculus of gallbladder without cholecystitis without obstruction
CPT/HCPCS: 76705

== ENCOUNTER 2019-09-01 09:20 | Outpatient (CLI) | payer MEDICARE ==
[2019-09-01 14:34] LABS: #Basophils 0.1 thou/uL (0.0-0.2); #Eosinphils 0.3 thou/uL (0.0-0.7); #Lymphocytes 4.2 thou/uL (1.20-3.40); #Monocytes 0.7 thou/uL (0.11-0.59); #Neutrophils 5.9 thou/uL (1.40-6.50); %Basophils 0.9 % (0.0-1.0); %Eosinophils 2.7 % (0.0-10.0); %Lymphocytes 37.9 % (21.0-51.0); %Monocytes 6.2 % (0.0-10.0); %Neutrophils 52.3 % (42.0-75.0); Hemoglobin 12.1 g/dL (12.0-16.0); Mean Corpuscular HGB CONC 33.3 g/dL (32.0-36.0); Mean Corpuscular Hemoglobin 26.1 pg (27.0-31.0); Mean Corpuscular Volume 78.5 fL (78.0-98.0); Mean Platelet Volume 9.9 fL (7.4-10.4); Platelet Count 246 thou/uL (130-400); RBC Distribution Width 17.1 % (11.5-14.5); Red Blood Cell (RBC) Count 4.65 mill/uL (4.20-5.40); White Blood Cell (WBC) Count 11.2 thou/uL (4.8-10.8)
[2019-09-01 14:45] LABS: ALT (SGPT) 13 U/L (8-55); AST (SGOT) 13 U/L (5-34); Albumin 4.6 g/dL (3.4-4.8); Alkaline Phosphatase 112 U/L (40-110); Anion Gap 18 mmol/L (10-20); BUN (Urea Nitrogen) 26 mg/dL (9.8-20.1); Bilirubin, Total 0.3 mg/dL (0.2-1.2); Calc. Creatinine Clearance 0 mL/min (70-130); Calcium 9.6 mg/dL (7.8-10.44); Carbon Dioxide 20 mmol/L (23-31); Chloride 102 mmol/L (98-107); Estimated GFR-MDRD 30; Globulin 3.5 g/dL (2.4-3.5); Glucose 273 mg/dL (80-115); Potassium 5.5 mmol/L (3.5-5.1); Protein, Total 8.1 g/dL (6.0-8.3); Sodium 134 mmol/L (136-145)
--- NOTE | 2019-09-01 17:59 | EKG ---
Test Reason : Blood Pressure : / mmHG Vent. Rate : 045 BPM Atrial Rate : 045 BPM P-R Int : 152 ms QRS Dur : 078 ms QT Int : 436 ms P-R-T Axes : 067 036 029 degrees QTc Int : 377 ms Marked sinus bradycardia Low voltage QRS Abnormal ECG When compared with ECG of 29-SEP-2018 12:33, Vent. rate has decreased BY 63 BPM QT has shortened Confirmed by Richard MILES ([id number]) on 09/01/2019 5:59:38 PM Referred By: DARCI Confirmed By:Richard MILES
== END 2019-09-01 09:21 | disposition home or self-care (01) ==
LOC: LABBT 09:20
PROVIDERS: ATTEND Specialist
DX: Z01.818 Encounter for other preprocedural examination (principal); K80.20 Calculus of gallbladder without cholecystitis without obstruction
CPT/HCPCS: 80053; 85025; 93005; 93010

== ENCOUNTER 2019-09-05 13:01 | Outpatient (CLI) | payer MEDICARE | END 2019-09-05 13:02 | disposition home or self-care (01) | LOC: ULT 13:01 | PROVIDERS: ATTEND Internal Medicine Cardiovascular Disease | DX: I11.9 Hypertensive heart disease without heart failure (principal); I08.8 Other rheumatic multiple valve diseases | CPT/HCPCS: 93306 ==

== ENCOUNTER 2019-09-06 07:52 | Day surgery (SDC) | payer MEDICARE ==
[2019-09-01 13:28] VITALS: BMI 30.3
--- NOTE | 2019-09-05 07:25 | HP ---
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 She has ongoing pain now. She has completed EGD and colonoscopy in July of [address] London who has referred her for consideration for laparoscopic cholecystectomy. She has seen Dr. Ryan and had a stress test and cardiac catheterization last year that was normal. She has reflux accounting for her chest discomfort. She has run out of her Dexilant which we have called refills 2-month supply [address] is seeing [address] London for this. She is followed by Dr. Leung, primary care physician. ALLERGIES: ERYTHROMYCIN, SULFA, IODINE. SOCIAL HISTORY: Tobacco, none. Alcohol, rarely. PAST SURGICAL HISTORY: Right inguinal hernia repair in 1984, hysterectomy, bilateral salpingo-oophorectomy in 1989 due to ovarian cyst, in 1999 right breast benign mass removed. She is hospitalized in 2018 for diverticulitis in [place]. There were no other problems at that time. MEDICATIONS: 1. Amitriptyline 10 mg at bedtime. 2. Amoxicillin for dental. 3. Aspirin 81 mg a day. 4. Atorvastatin 40 mg a day. 5. Cyclobenzaprine 10 mg p.r.n. 6. Dexilant 60 mg a day, has ran out. 7. Januvia 25 mg a day. 8. Lisinopril/hydrochlorothiazide 20/12.5 mg a day. 9. Loratadine daily. 10. Losartan 50 mg daily. 11. Metformin 500 mg once a day, two tablets. 12. Metoprolol 50 mg a day. 13. Nifedipine 90 mg a day. REVIEW OF SYSTEMS: Noncontributory except as noted above. PAST MEDICAL HISTORY: GERD, diabetes mellitus, hypertension. PHYSICAL EXAMINATION: VITAL SIGNS: 167 pounds, 62 inches, 30 BMI. 154/73, 63, 96 degrees. HEAD, EARS, EYES, NOSE, AND THROAT: Unremarkable. LUNGS: Clear to auscultation. CARDIAC: Regular rate and rhythm without murmur or gallop. ABDOMEN: Soft. Tenderness in right upper quadrant with guarding. EXTREMITIES: Unremarkable. No ankle edema. ASSESSMENT AND PLAN: 1. Symptomatic cholelithiasis, normal bile duct caliber. Liver function tests normal in June. We will repeat. Risks of infection, bleeding, reoperation, visceral injury discussed. Questions answered. Plan laparoscopic cholecystectomy next week per her desire. Her is having hematuria and seeing urologist [place] Dr. Jacome. I have told the patient after discussing with her , if she desires laparoscopic cholecystectomy tomorrow that this is appropriate due to her tenderness in the right upper quadrant, ongoing pain, and evidence of cholecystitis. 2. Gastroesophageal reflux disease. 3. Diabetes mellitus. 4. Hypertension. 5. Negative cardiac catheterization and stress test last year. Job ID: [id number]
[2019-09-06] MEDS ORDERED: Levofloxacin 500 mg/D5W 100 ml Premix Bag ONE (08:45)
[2019-09-06] MEDS ORDERED: Ketorolac Tromethamine 30 MG/ML VIAL ONE (08:45)
[2019-09-06] MEDS ORDERED: Bupivacaine PF 0.5% 30 ML VIAL ONE (08:54)
[2019-09-06] MEDS ORDERED: Fentanyl 100 MCG/2 ML VIAL ONE ×5 (09:14→11:34)
[2019-09-06] MEDS ORDERED: SUGAMMADEX SODIUM 200 MG/2 ML VIAL ONE (09:56)
[2019-09-06] MEDS ORDERED: Rocuronium Bromide 10 MG/ML (10ML VIAL) ONE (10:15)
[2019-09-06] MEDS ORDERED: PROPOFOL 200 MG/20 ML VIAL ONE (10:15)
[2019-09-06] MEDS ORDERED: Ondansetron PF 4 MG/2 ML Vial ONE (10:15)
[2019-09-06] MEDS ORDERED: Lidocaine 1% PF 5 ML VIAL ONE (10:15)
--- NOTE | 2019-09-06 10:40 | OP ---
DATE OF PROCEDURE: 09/06/2019 PREOPERATIVE DIAGNOSES: 1. Chronic cholecystitis. 2. Cholelithiasis. 3. Chronic kidney disease. 4. Followed by Dr. Ryan for preoperative cardiac clearance with normal stress test and normal echocardiogram. POSTOPERATIVE DIAGNOSES: 1. Chronic cholecystitis. 2. Cholelithiasis. 3. Chronic kidney disease. 4. Followed by Dr. Ryan for preoperative cardiac clearance with normal stress test and normal echocardiogram. PROCEDURE PERFORMED: Laparoscopic video cholecystectomy. ANESTHESIA: General, local with 0.5% Marcaine with epinephrine 30 mL mixed with 1% Xylocaine, 30 mL total mixture used. DESCRIPTION OF PROCEDURE: The patient was taken to the operating room, where under general anesthesia, abdomen was prepared with ChloraPrep and draped in routine fashion. Local anesthetic mixture was infiltrated into the skin and subcutaneous tissue about each port site. Infraumbilical incision was made. Pneumoperitoneum to 15 mmHg obtained with a Veress needle, replaced with a 5 port. Laparoscope inserted. Right subxiphoid incision was made and 11 port placed. Right subcostal incision was made at midclavicular entrance line and the 5 port was placed. Liver appeared to be normal. Gallbladder had multiple stones. Fundus was grasped and reflected cephalad. Infundibulum was grasped and reflected laterally. Cystic artery and duct dissected free. Critical view obtained. Cystic artery and duct doubly clipped proximally and divided. Gallbladder dissected free from liver bed. Obtaining good hemostasis prior to division of the final peritoneal attachments. Gallbladder and contents removed, submitted to Pathology. Good hemostasis was ensured. Irrigant and pneumoperitoneum were evacuated. All instruments were removed. All skin incisions were approximated with interrupted subdermal 4-0 Monocryl and [place] glue applied. Job ID: [id number]
[2019-09-06] MEDS ORDERED: Meperidine HCl/PF 25 MG/ML VIAL ONE (10:43)
[2019-09-06] MEDS ORDERED: HYDROcodone/Acetaminophen 5/325 mg Tablet ONE (13:48)
== END 2019-09-06 14:35 | disposition home or self-care (01) ==
LOC: SDC 07:52
PROVIDERS: ATTEND Specialist
PROC: 0FT44ZZ Resection of Gallbladder, Percutaneous Endoscopic Approach (ICD-10-PCS; principal; 2019-09-06)
DX: K80.10 Calculus of gallbladder with chronic cholecystitis without obstruction (principal); I12.9 Hypertensive chronic kidney disease with stage 1 through stage 4 chronic kidney disease, or unspecified chronic kidney disease; E11.22 Type 2 diabetes mellitus with diabetic chronic kidney disease; N18.9 Chronic kidney disease, unspecified; K21.9 Gastro-esophageal reflux disease without esophagitis; Z79.82 Long term (current) use of aspirin; Z79.84 Long term (current) use of oral hypoglycemic drugs; Z79.899 Other long term (current) drug therapy; Z88.2 Allergy status to sulfonamides; Z91.041 Radiographic dye allergy status
CPT/HCPCS: 88304; J0131; J1885; J1956; J2001; J2175; J2405; J2704; J3010; S0020

== ENCOUNTER 2020-04-14 17:13 | Observation (INO) | payer MEDICARE ==
[~2020-04-14 17:13] MED LIST: Iopamidol-370 76% 500 ML 1 ML ONE
--- NOTE | 2020-04-14 17:42 | RAD ---
Chest one view HISTORY: Chest pain. COMPARISON: 09/29/2018. FINDINGS: Cardiac silhouette is magnified by projection. Pulmonary vasculature is unremarkable. Mediastinum is midline. No lobar consolidation or evidence of pneumothorax. IMPRESSION : No abnormalities are demonstrated.
[2020-04-14 17:45] LABS: #Basophils 0.1 thou/uL (0.0-0.2); #Eosinphils 0.4 thou/uL (0.0-0.7); #Lymphocytes 4.1 thou/uL (1.20-3.40); #Neutrophils 8.7 thou/uL (1.40-6.50); %Basophils 0.8 % (0.0-1.0); %Eosinophils 2.8 % (0.0-10.0); %Lymphocytes 28.8 % (21.0-51.0); %Monocytes 6.7 % (0.0-10.0); %Neutrophils 60.9 % (42.0-75.0); Hemoglobin 11.3 g/dL (12.0-16.0); Mean Corpuscular HGB CONC 34.5 g/dL (32.0-36.0); Mean Corpuscular Hemoglobin 27.8 pg (27.0-31.0); Mean Corpuscular Volume 80.6 fL (78.0-98.0); Mean Platelet Volume 10.1 fL (7.4-10.4); Platelet Count 192 thou/uL (130-400); RBC Distribution Width 16.8 % (11.5-14.5); Red Blood Cell (RBC) Count 4.06 mill/uL (4.20-5.40); White Blood Cell (WBC) Count 14.2 thou/uL (4.8-10.8)
[2020-04-14 18:08] LABS: ALT (SGPT) 21 U/L (8-55); AST (SGOT) 25 U/L (5-34); Albumin 4.4 g/dL (3.4-4.8); Alkaline Phosphatase 101 U/L (40-110); Anion Gap 18 mmol/L (10-20); BUN (Urea Nitrogen) 30 mg/dL (9.8-20.1); Bilirubin, Total 0.3 mg/dL (0.2-1.2); CK (CPK) 226 U/L (29-168); Calc. Creatinine Clearance 0 mL/min (70-130); Calcium 9.5 mg/dL (7.8-10.44); Carbon Dioxide 18 mmol/L (23-31); Chloride 99 mmol/L (98-107); Estimated GFR-MDRD 31; Globulin 3.7 g/dL (2.4-3.5); Glucose 440 mg/dL (80-115); Lipase 106 U/L (8-78); Potassium 4.7 mmol/L (3.5-5.1); Protein, Total 8.1 g/dL (6.0-8.3); Sodium 130 mmol/L (136-145)
[2020-04-14 18:29] LABS: CKMB 0.9 ng/mL (0-6.6)
[2020-04-14] MEDS ORDERED: diphenhydrAMINE 50 MG/ML VIAL ONE (19:22)
[2020-04-14] MEDS ORDERED: Morphine 4 MG/ML VIAL ONE (19:22)
[2020-04-14] MEDS ORDERED: Famotidine/PF 20 mg/2ml Vial ONE ×2 (19:23→19:24)
[2020-04-14] MEDS ORDERED: methylPREDNISolone Sod Succ 40 MG VIAL ONE (19:23)
--- NOTE | 2020-04-14 20:08 | PDOC.FPRHP ---
- History of Present Illness Chief Complaint: Chest Pain History of Present Illness: Patient is a 69F with PMHx of Diabetes, HTN, mitral valve prolapse (s/p negative cardiac cath about [address] Graff) coming to ED with complaint of chest pain/tightness and elevated blood glucose. Pain started this afternoon while cooking dinner. She has had CP before that was attributed to reflux. She denies dyspnea, radiation of pain. Pain was unchanged with activity level and is still present. She had a possible prior hx of pancreatitis that she was then told was actually diverticulitis. She says since she was feeling unusual she checked her BG and it was 410. Her BG normally runs around 180-190 and occasionally into the 200s, but never into the 400s. She was feeling nauseous and shaky at onset. When she looked up what to do online it said to drink a lot of water so she did but when she rechecked it was still 400+ so she came to the ED. She stopped taking Metformin ER 2/2 physician telling her it was recalled. She states she was placed on pioglitazone in place of this. She follows with endocrinology. BG was 440 on ER admission. ED Course: Elevated BG 440, IVF 1L NS bolus, Troponin 0.031 - Allergies/Adverse Reactions Allergies Allergy/AdvReac Type Severity Reaction Status Date / Time erythromycin base Allergy Verified 04/15/20 00:58 Iodinated Contrast Media Allergy Anaphylaxis Verified 04/15/20 00:58 [Iodinated Contrast Media - Oral and] Sulfa (Sulfonamide Allergy Verified 04/15/20 00:58 Antibiotics) - Home Medications Medication Instructions Recorded Confirmed Type Aspirin Chewable [Aspirin Chewable 81 mg PO DAILY 12/15/16 04/15/20 History Tablet] Cyclobenzaprine [Flexeril] 10 mg PO DAILY PRN 12/15/16 04/15/20 History Metoprolol Tartrate 50 mg PO BID 12/15/16 04/15/20 History NIFEdipine [Nifedipine ER] 90 mg PO DAILY 09/29/18 04/15/20 History sitaGLIPtin Phosphate [Januvia] 50 mg PO DAILY 09/29/18 04/15/20 History Amitriptyline HCl 10 mg PO HS 09/01/19 04/15/20 History Hydrochlorothiazide 1 tab PO DAILY 09/01/19 04/15/20 History Loratadine 1 tab PO DAILY 09/01/19 04/15/20 History Losartan Potassium 1 tab PO DAILY 09/01/19 04/15/20 History Pioglitazone HCl [Actos] 15 mg PO DAILY 04/15/20 04/15/20 History hydrALAZINE HCl [Hydralazine HCl] 50 mg PO BID 04/15/20 04/15/20 History - History PMHx: DM, HTN, mitral valve prolapse PSHx: GB removal in Aug 2019, complete hysterectomy, hernia repair, removal of benign breast mass FHx: Dad had COPD and DM, Mom had lung cancer 2/2 2nd hand smoke and DM Social: Denies smoking/illicit drug use, endorses EtOH but last drink was years ago - Review of Systems General: denies: fever/chills Eyes: denies: eye pain, vision changes ENT: denies: nasal congestion, rhinorrhea Respiratory: denies: cough, congestion, shortness of breath Cardiovascular: reports: chest pain. denies: palpitation, edema Gastrointestinal: reports: nausea, diarrhea (s/p gall bladder removal in Aug 2019). denies: vomiting, abdominal pain Genitourinary: denies: incontinence Skin: denies: rashes, lesions Musculoskeletal: denies: pain, tenderness, swelling Neurological: denies: numbness, syncope, seizure Psychological: reports: anxiety (2/2 BG) - Vital signs BP: 148/59, Pulse: 72, Resp: 20, Temp: 98.2 (Oral), Pain: 8, O2 sat: 98 on ( Room Air) - Physical Exam Constitutional: NAD, awake, alert and oriented HEENT: normocephalic and atraumatic, PERRLA, EOMI, grossly normal hearing Neck: supple, FROM Chest: no-tender to palpation Heart: pulses present, no edema Lungs: no respiratory distress Abdomen: soft, no masses/distention -Abdomen: Tender to palpation in RUQ Musculoskeletal: normal structure, normal tone, ROM grossly normal Neurological: no focal deficit, CN II-XII intact Skin: no rash/lesions Heme/Lymphatic: no unusual bruising or bleeding Psychiatric: normal mood and affect, good judgment and insight, intact recent and remote memory FMR H&P: Results - Labs Result Diagrams: 04/14/20 17:35 04/15/20 08:52 Lab results: WBC 14.2 thou/uL (4.8-10.8) H 04/14/20 17:35 Hgb 11.3 g/dL (12.0-16.0) L 04/14/20 17:35 Hct 32.7 % (36.0-47.0) L 04/14/20 17:35 MCV 80.6 fL (78.0-98.0) 04/14/20 17:35 Plt Count 192 thou/uL (130-400) 04/14/20 17:35 Neutrophils % 60.9 % (42.0-75.0) 04/14/20 17:35 Sodium 130 mmol/L (136-145) L 04/14/20 17:35 Potassium 4.7 mmol/L (3.5-5.1) 04/14/20 17:35 Chloride 99 mmol/L (98-107) 04/14/20 17:35 Carbon Dioxide 18 mmol/L (23-31) L 04/14/20 17:35 BUN 30 mg/dL (9.8-20.1) H 04/14/20 17:35 Creatinine 1.95 mg/dL (0.6-1.1) H 04/14/20 17:35 Glucose 440 mg/dL (80-115) H 04/14/20 17:35 Calcium 9.5 mg/dL (7.8-10.44) 04/14/20 17:35 Total Bilirubin 0.3 mg/dL (0.2-1.2) 04/14/20 17:35 AST 25 U/L (5-34) 04/14/20 17:35 ALT 21 U/L (8-55) 04/14/20 17:35 Alkaline Phosphatase 101 U/L (40-110) 04/14/20 17:35 Creatine Kinase 226 U/L (29-168) H 04/14/20 17:35 CK-MB (CK-2) 0.9 ng/mL (0-6.6) 04/14/20 17:35 B-Natriuretic Peptide 34.7 pg/mL (0-100) 04/14/20 17:35 Serum Total Protein 8.1 g/dL (6.0-8.3) 04/14/20 17:35 Albumin 4.4 g/dL (3.4-4.8) 04/14/20 17:35 Lipase 106 U/L (8-78) H 04/14/20 17:35 Troponin 0.031 - Radiology Interpretation Chest x-ray Status: image reviewed by me, report reviewed by me (No acute intrathoracic process) CT scan - abdomen Status: image reviewed by me, report reviewed by me (No acute intraabdominal process) FMR H&P: A/P - Plan Atypical Chest pain: - anxiety vs GERD vs NSTEMI vs pancreatitis - Elevated troponin 0.032, historically normal per chart review - EKG not suspicious for acute ischemia - BNP & CXR wnl - Trend troponin - Stress test LIZ: - Baseline SCr difficult to assess, per chart review 1.2-1.6 over past year - IVF LR @ 100cc/hr - monitor with repeat BMP @ 0000 Diabetes: - moderate SSI while inpatient - BG ACHS - UA - Hb A1c HTN: - med rec, restart home meds - No beta blockers for stress test Code status: full DVT ppx: SCD Disposition/LOS: Dispo: Patient requires admission for observation for chest pain workup, LOS likely <48 hrs FMR H&P: Upper Level - Plan Date/Time: 04/14/202005 ITricia MD, have evaluated this patient and agree with findings/plan as outlined by summer internship resident. Pertinent changes/additions are listed here. This is a 69yo AA F with a PMH of DM, HTN, who presented to the ER for elevated blood sugar and chest pain. The patient reports that she was feeling overall bad today and checked her sugar. It was found to be 410. She states that usually her sugar runs in the upper 100s. She states that she drank a lot of water hoping this would help but when she checked it again it was still in the 400s. She has never had DKA before. She has been tolerating PO well. She also had chest pain that was concerning to her. She describes it as pressure like " like a rubber band around her chest." No radiation. Has not had a heart attack before. Denies NVD, abd pain, vision changes, headache, swelling in extremities. States pain not made worse by anything in particular, not positional. Pain has improved since being in the ER. Patient had a cath 3 years ago that was normal. Sees Dr. Ryan. Echo 09/14 showing normal EF, diastolic dysfunction 1/3 See summer internship note for full HPI/Details. PE: General: NAD, resting comfortably Cardio: RRR, mild JVD, no murmurs, rubs or gallops Resp: CTAB, no wheezes, rales or rhonchi Abd: ttp of RUQ, soft, non distended, good bs MSK: No swelling noted Psych: axox4, good insight/judgement Plan: Atypical chest pain likely 2/2 stable angina Patient with hx of DM, HTN, EKG normal, CXR normal. HEART score of 6. - Initial trop 0.03, will continue to trend - AM Stress, NPO at midnight. - Echo as listed above, no indication for another one at this point. No significant murmur heard, no LE edema. - ASA, statin - Admit to tele, obs Elevated lipase s/p 2 L in the ER. Will give gentle fluids - will monitor. Minimal abd pain. DM BG >400 in ER. Given fluids. - Will give 10u insulin now. Gap of 13 on arrival. Will give BMP in 4 hours to recheck. - UA to check for ketones - Continue home meds, aggressive SS - A1c pending CKD stage G3b BUN/Cr: 30/1.95, about at baseline - will continue gentle fluids GERD - Will give pepcid Dispo: admit to tele, obs. LOS < 48hrs Diet: HH, NPO at midnight Ppx: SCDs Case discussed with Dr. Alford Addendum - Attending - Attending Attestation Date/Time: 04/15/20 [id number] I personally evaluated the patient and discussed the management with the team. I agree with the History, Examination, Assessment and Plan documented above with any addition or exceptions noted below. Has atypical CP with negative cath >3 years ago. Also has DARCY abdominal pain with glucose >400 which may be c/w early DKA vs related to CP. Plan for stress, insulin, repeat BMP in the morning.
--- NOTE | 2020-04-14 20:14 | CT ---
CT abdomen and pelvis with IV contrast HISTORY: Abdomen pain. COMPARISON: 07/19/2019. FINDINGS: The lung bases are clear. The liver, spleen, kidneys, adrenal glands, and pancreas are unre markable. Gallbladder is surgically absent. Urinary bladder has normal appearance. There are degenerative changes throughout the lumbar spine. Small pocket of gas is present within a r ight posterolateral disc herniation at the L4-5 level. IMPRESSION : No acute abnormalities are demonstrated.
[2020-04-14 21:54] LABS: Troponin I 0.015 ng/mL (< 0.028)
[2020-04-15 00:02] LABS: Troponin I 0.036 ng/mL (< 0.028)
[2020-04-15] MEDS ORDERED: Morphine 2 MG/ML VIAL SLOW IVP PRN (00:52)
[2020-04-15] MEDS ORDERED: Dextrose 5% in Water 1,000 ML IV PRN ×2 (00:56→04:17)
[2020-04-15] MEDS ORDERED: HumaLOG 300 UNITS/3 ML VIAL SC PRN (00:56)
[2020-04-15] MEDS ORDERED: Ondansetron PF 4 MG/2 ML Vial IVP PRN (00:56)
[2020-04-15] MEDS ORDERED: Dextrose 50% Abboject 50 ML SYRINGE SLOW IVP PRN ×2 (00:56→04:17)
[2020-04-15] MEDS ORDERED: Acetaminophen 650 MG Suppository PR PRN (00:56)
[2020-04-15] MEDS ORDERED: Ondansetron ODT 4 MG TAB PO PRN (00:56)
[2020-04-15] MEDS ORDERED: Aspirin 325 MG TAB PO SCH (01:00)
[2020-04-15] MEDS ORDERED: HumaLOG 300 UNITS/3 ML VIAL SC SCH (01:00)
[2020-04-15] MEDS ORDERED: Nitroglycerin 2% Ointment 1 INCH/1 GM Packet TOP SCH ×4 (01:00→09:00)
[2020-04-15 01:10] VITALS: BMI 26.2
[2020-04-15] MEDS ORDERED: Lactated Ringer's 1,000 ML IV SCH ×2 (01:15→05:00)
[2020-04-15] MEDS: Acetaminophen 325 MG TAB PO PRN ×2 (01:50→09:13)
[2020-04-15 03:12] LABS: Hemoglobin A1c 7.2 % (4.0-6.0)
[2020-04-15 03:17] LABS: Anion Gap 21 mmol/L (10-20); BUN (Urea Nitrogen) 27 mg/dL (9.8-20.1); Calc. Creatinine Clearance 31 mL/min (70-130); Calcium 9.8 mg/dL (7.8-10.44); Carbon Dioxide 14 mmol/L (23-31); Chloride 103 mmol/L (98-107); Estimated GFR-MDRD 34; Glucose 443 mg/dL (80-115); Potassium 5.4 mmol/L (3.5-5.1); Sodium 133 mmol/L (136-145)
[2020-04-15] MEDS ORDERED: diphenhydrAMINE 25 MG CAP PO PRN (04:14)
[2020-04-15] MEDS ORDERED: Electrolyte Replacement Protoc 1 EACH EACH IVPB ONE (04:32)
[2020-04-15] MEDS ORDERED: NS 0.9% w/ 20 MEQ KCL 1,000 ML IV PRN ×2 (04:32)
[2020-04-15] MEDS ORDERED: D5 1/2 NS w/20 mEq KCL 1,000 ML IV PRN (04:32)
[2020-04-15] MEDS ORDERED: Dextrose 5 %-0.45 % NaCl 1,000 ML IV PRN (04:32)
[2020-04-15] MEDS ORDERED: Sodium Chloride 0.9% 1,000 ML IV PRN ×4 (04:32)
[2020-04-15 04:42] LABS: Cardiac Risk 3.3 (Less than 4.5); Cholesterol 219 mg/dl (< 200 Desired); HDL Cholesterol 66 mg/dL (>60 Neg Risk); LDL Cholesterol, Calculated 139 mg/dL; Magnesium 1.4 mg/dL (1.6-2.6); Phosphorus 2.7 mg/dL (2.3-4.7); Triglycerides 69 mg/dL (Less than 150)
[2020-04-15] MEDS ORDERED: HUMULIN R 100 UNITS in Sodium Chloride 0.9% 100 ML IVPB SCH (04:45)
[2020-04-15] MEDS ORDERED: Electrolyte Replacement Protocol FS PRN (04:45)
[2020-04-15] MEDS: HumaLOG 300 UNITS/3 ML VIAL SC PRN ×2 (04:54→15:11)
[2020-04-15] MEDS ORDERED: Magnesium 2 GM/50 ML 2 GM in Premix Bag 1 BAG IVPB SCH ×2 (05:00→06:30)
[2020-04-15 05:39] LABS: Anion Gap 18 mmol/L (10-20); BUN (Urea Nitrogen) 26 mg/dL (9.8-20.1); Calc. Creatinine Clearance 33 mL/min (70-130); Calcium 9.8 mg/dL (7.8-10.44); Carbon Dioxide 15 mmol/L (23-31); Chloride 105 mmol/L (98-107); Estimated GFR-MDRD 37; Glucose 330 mg/dL (80-115); Sodium 133 mmol/L (136-145)
--- NOTE | 2020-04-15 07:07 | PDOC.FM ---
Addendum entered and electronically signed by Candida Brand MD 04/15/20 07:12 : A/P: ASCVD 31%, discussed starting high intensity statin with pt who is agreeable Original Note: - Subjective Subjective: NAEO. Chest pain improved. Confirmed last NST was 2 years ago. No other sxs. Requesting to change up her diabetic medications - Objective MAR Reviewed: Yes Vital Signs & Weight: Vital Signs (12 hours) Temp Pulse Resp BP Pulse Ox 04/15/20 02:51 98.2 F 74 18 148/75 H 99 04/15/20 00:56 98.1 F 74 20 148/75 H 98 Weight Weight 64.949 kg Result Diagrams: 04/14/20 17:35 04/15/20 08:52 Phys Exam - Physical Examination Constitutional: NAD HEENT: PERRLA, moist MMs Respiratory: no wheezing, clear to auscultation bilateral Cardiovascular: no rub 3/5 systolic murmur at left sternal border Gastrointestinal: soft, non-tender Musculoskeletal: no edema Neurological: non-focal, moves all 4 limbs midsternal tenderness reproducible to palpation Psychiatric: normal affect, A&O x 3 Dx/Plan (1) Atypical chest pain Code(s): R07.89 - OTHER CHEST PAIN Status: Acute (2) Diabetes type 2, controlled Code(s): E11.9 - TYPE 2 DIABETES MELLITUS WITHOUT COMPLICATIONS Status: Acute (3) GERD (gastroesophageal reflux disease) Code(s): K21.9 - GASTRO-ESOPHAGEAL REFLUX DISEASE WITHOUT ESOPHAGITIS Status: Acute Qualifiers: (4) HTN (hypertension) Code(s): I10 - ESSENTIAL (PRIMARY) HYPERTENSION Status: Acute Qualifiers: - Plan Plan: Atypical chest pain likely 2/2 stable angina Patient with hx of DM, HTN, EKG normal, CXR normal. - Trop <.01 x2 - AM Stress today, HEART score 6 - ASA - Discussed starting statin, pt agreeable LIZ in CKD G3b -1.9 >1.6, improved Hyperglycemia in DM2 BG >400 in ER. Given fluids. -A1c 7.3%, reports higher than normal -BMP: developed AG 16 overnight, but negative ketones. Repeat BMP shows AG closed -Continue sliding scale, review oral hyperglycemic meds-consider switching pioglitazone GERD - Will give pepcid Elevated lipase -Not 2-3x ULN -No abd pain Dispo: admit to tele, obs. LOS < 48hrs Diet: HH, NPO, AM stress today Ppx: SCDs Discussed with Dr. Davalos Addendum - Attending - Attending Attestation Date/Time: 04/15/20 1662 I personally evaluated the patient and discussed the management with Dr. Brand. I agree with the History, Examination, Assessment and Plan documented above with any addition or exceptions noted below. Patient feeling well. Awaiting stress testing results. Working on getting better glycemic control and possible dc this afternoon. No evidence for DKA at any point during this admission.
[2020-04-15 08:56] LABS: Bilirubin Negative (Negative); Blood, Urine Trace (Negative); Clarity Clear (Clear); Glucose, Urine (Dipstick) Greater than 1000 mg/dL (Negative); Ketone, Urine Trace mg/dL (Negative); Leukocyte Negative Leu/uL (Negative); Nitrite Negative (Negative); Protein, Urine (Dipstick) 20 mg/dL (Neg-Trace); RBC/HPF 0-3 HPF (0-3); Specific Gravity, Urine 1.019 (1.002-1.036); Squamous Epithelial None Seen HPF (0-3); Urobilinogen Normal mg/dL (Less than 2); WBC/HPF 0-3 HPF (0-3)
[2020-04-15 08:59] LABS: Bacteria/HPF 1+ HPF (None Seen)
[2020-04-15] MEDS ORDERED: NIFEdipine XL 90 MG TAB PO SCH (09:00)
[2020-04-15] MEDS ORDERED: Famotidine 20 MG TAB PO SCH (09:00)
[2020-04-15] MEDS ORDERED: Non-Formulary Item 1 EACH (Hydralazine Hcl [Hydralazine Hcl] 50 MG) PO SCH (09:00)
[2020-04-15] MEDS ORDERED: Alogliptin 6.25 MG TAB PO SCH (09:00)
[2020-04-15] MEDS ORDERED: Pioglitazone HCl 15 MG TAB PO SCH (09:00)
[2020-04-15] MEDS ORDERED: hydrALAZINE 25 MG TAB PO SCH (09:00)
[2020-04-15] MEDS ORDERED: sitaGLIPtin Phosphate 25 MG TAB PO SCH (09:00)
[2020-04-15] MEDS ORDERED: Famotidine/PF 20 mg/2ml Vial SLOW IVP SCH (09:00)
[2020-04-15 09:24] LABS: Anion Gap 16 mmol/L (10-20); BUN (Urea Nitrogen) 26 mg/dL (9.8-20.1); Calc. Creatinine Clearance 36 mL/min (70-130); Calcium 9.7 mg/dL (7.8-10.44); Carbon Dioxide 19 mmol/L (23-31); Chloride 104 mmol/L (98-107); Estimated GFR-MDRD 41; Glucose 215 mg/dL (80-115); Potassium 4.6 mmol/L (3.5-5.1); Sodium 134 mmol/L (136-145)
[2020-04-15 13:32] VITALS: BP 157/83; TEMP 97.9
--- NOTE | 2020-04-15 13:44 | NM ---
EXAM: CARDIAC SPECT HISTORY: Chest pain, hypertension, diabetes, dyslipidemia TECHNIQUE: A myocardial perfusion scan was performed using the single isotope 1 day protocol with tonya hnetium 99m sestamibi. [10 mCi] was injected intravenously for the rest exam followed by 30 mCi for the stress study. Exercise stress was monitored and interpreted by JUAN Marshall FINDINGS: Homogeneous tracer distribution is seen in the myocardial segments on stress and rest image s without fixed or reversible defects. Gated SPECT LVEF: 87% Wall motion exam: Normal IMPRESSION: Normal myocardial perfusion scan
[2020-04-15 13:56] LABS: Anion Gap 16 mmol/L (10-20); BUN (Urea Nitrogen) 25 mg/dL (9.8-20.1); Calc. Creatinine Clearance 35 mL/min (70-130); Calcium 9.9 mg/dL (7.8-10.44); Carbon Dioxide 19 mmol/L (23-31); Chloride 105 mmol/L (98-107); Estimated GFR-MDRD 39; Glucose 234 mg/dL (80-115); Potassium 4.7 mmol/L (3.5-5.1); Sodium 135 mmol/L (136-145)
[2020-04-15] MEDS ORDERED: Insulin Glargine 8 UNITS in Pre-Filled Syringe 1 EACH SC SCH (21:00)
[2020-04-15] MEDS ORDERED: Atorvastatin Calcium 40 MG TAB PO SCH (21:00)
--- NOTE | 2020-04-16 06:57 | DIS ---
DATE OF ADMISSION: 04/14/2020 DATE OF DISCHARGE: 04/15/2020 ADMITTING ATTENDING: Saman Alford MD DISCHARGE ATTENDING: Iker Davalos MD RESIDENT: Candida Brand MD, PGY3 PRIMARY DIAGNOSES: 1. Atypical chest pain, likely costochondritis. 2. Hyperglycemia and type 2 diabetes. SECONDARY DIAGNOSES: 1. Well-controlled diabetes mellitus 2. 2. Hypertension. 3. Mitral valve prolapse. 4. Heart failure, preserved ejection fraction. PROCEDURES AND IMAGIN. Nuclear medicine stress test showed ejection fraction 87%. Normal myocardial perfusion scan. 2. Abdomen and pelvis CT, no acute abnormalities demonstrated. 3. Chest x-ray, no abnormalities demonstrated. DISCHARGE MEDICATIONS: New home medications include: 1. Atorvastatin 40 mg p.o. at bedtime. 2. Pepcid 20 mg p.o. daily. 3. Lantus 8 units subcu at bedtime, titrate as needed. Resumed home medications: 1. Flexeril 10 mg p.o. daily. 2. Aspirin 81 mg p.o. daily. 3. Metoprolol 50 mg p.o. b.i.d. 4. Januvia 50 mg p.o. daily. 5. Nifedipine 90 mg p.o. daily. 6. HCTZ 25 mg one tab p.o. daily. 7. Losartan 50 mg one tab p.o. daily. 8. Amitriptyline 10 mg p.o. at bedtime. 9. Loratadine 10 mg one tab p.o. daily. 10. Hydralazine 50 mg p.o. b.i.d. 11. Actos 15 mg p.o. daily. HISTORY OF PRESENT ILLNESS/HOSPITAL COURSE: Ms. Jeannette Del Valle is a 69-year-old female, who came with history of diabetes, hypertension, hyperlipidemia, who came to the ER for chest pain and hyperglycemia. She was admitted for atypical chest pain, ACS rule out. She underwent nuclear medicine stress test, which was negative. Chest pain was reproducible, so likely thought it is musculoskeletal and mix of her GERD, in which Pepcid had improved it. In regard to her diabetes, her sugars were running in the 400s at home. She recently was discontinued off metformin and started on pioglitazone. There was a period of three weeks, in which she was completely off metformin before starting the pioglitazone. She was not found to be in DKA and her sugars came down with short-acting insulin. It is likely that her hyperglycemia is due to the fact that sometimes it can take several weeks for the pioglitazone to reach maximum effect. 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 She is being sent home with 8 units of Lantus to help with glycemic control while her pioglitazone titrates to effect. This was discussed with the patient, who feels comfortable since she has been on insulin previously. DISPOSITION: Stable. DISCHARGE INSTRUCTIONS: 1. Location: Home. 2. Diet: Heart healthy, carb consistent. 3. Activity: Ad tyron as tolerated. FOLLOWUP: 1. Please follow up with PCP, Dr. Brand this week after hospital discharge. 2. Please follow up with Dr. Carias in one month. 3. Please check sugars and titrate Lantus as needed for optimal glycemic control. Extensive education was discussed including hypoglycemic management and warning signs. The patient indicated understanding, stable to go home on these instructions. Job ID: [id number]
== END 2020-04-15 16:51 | disposition home or self-care (01) ==
LOC: ERS 17:13 → ERHOLD 20:25 → 2SE 04-15 00:46
PROVIDERS: ADMIT Emergency Medicine; ATTEND Emergency Medicine
DX: R07.89 Other chest pain (principal); E11.65 Type 2 diabetes mellitus with hyperglycemia; I11.0 Hypertensive heart disease with heart failure; I50.30 Unspecified diastolic (congestive) heart failure; I34.1 Nonrheumatic mitral (valve) prolapse; N17.9 Acute kidney failure, unspecified; Z79.4 Long term (current) use of insulin; Z79.82 Long term (current) use of aspirin; Z79.899 Other long term (current) drug therapy; Z88.1 Allergy status to other antibiotic agents; Z88.2 Allergy status to sulfonamides; Z91.041 Radiographic dye allergy status
CPT/HCPCS: 71045; 74177; 78452; 80048 ×2; 80053; 80061; 81001; 82010; 82550; 82553; 82962; 83036; 83690; 83735; 83880; 84100; 84484 ×3; 85025; 93005; 93017; 94760; 96361; 96374; 96375; 99285; A9500; J2270; 36415; 36416; 96376; G0378; J1200; J1815; J2920; J3475; Q0163; Q9967; S0028

== ENCOUNTER 2021-03-07 11:50 | Outpatient (CLI) | payer MEDICARE | END 2021-03-07 11:51 | disposition home or self-care (01) | LOC: BICMAMMO 11:50 | PROVIDERS: ATTEND Family Medicine | DX: Z12.31 Encounter for screening mammogram for malignant neoplasm of breast (principal); Z91.89 Other specified personal risk factors, not elsewhere classified | CPT/HCPCS: 77063; 77067 ==

== ENCOUNTER 2021-07-31 10:25 | Outpatient (CLI) | payer MEDICARE | END 2021-07-31 10:26 | disposition home or self-care (01) | LOC: CTENTCT 10:25 | PROVIDERS: ATTEND Otolaryngology Plastic Surgery within the Head & Neck | DX: J32.9 Chronic sinusitis, unspecified (principal) | CPT/HCPCS: 70486 ==

== ENCOUNTER 2022-07-23 11:29 | Outpatient (CLI) | payer MEDICARE | END 2022-07-23 11:30 | disposition home or self-care (01) | LOC: BICMAMMO 11:29 | PROVIDERS: ATTEND Family Medicine | DX: Z12.31 Encounter for screening mammogram for malignant neoplasm of breast (principal); Z85.3 Personal history of malignant neoplasm of breast | CPT/HCPCS: 77063; 77067 ==

== ENCOUNTER 2022-08-13 10:38 | Outpatient (CLI) | payer MEDICARE | END 2022-08-13 10:39 | disposition home or self-care (01) | LOC: MRI 10:38 | PROVIDERS: ATTEND Family Medicine | DX: M54.50 Low back pain, unspecified (principal); M47.816 Spondylosis without myelopathy or radiculopathy, lumbar region | CPT/HCPCS: 72148 ==

== ENCOUNTER 2023-01-07 12:50 | Outpatient (CLI) | payer MEDICARE | END 2023-01-07 12:51 | disposition home or self-care (01) | LOC: DTY/OP 12:50 | PROVIDERS: ATTEND Family Medicine | DX: E11.9 Type 2 diabetes mellitus without complications (principal); Z71.3 Dietary counseling and surveillance | CPT/HCPCS: 97802 ==

== ENCOUNTER 2023-02-03 12:39 | Inpatient (IN) | payer MEDICARE ==
[2023-02-03 13:38] LABS: #Basophils 0.1 thou/uL (0.0-0.2); #Eosinphils 0.3 thou/uL (0.0-0.7); #Monocytes 0.6 thou/uL (0.11-0.59); #Neutrophils 7.1 thou/uL (1.40-6.50); %Basophils 0.7 % (0.0-1.0); %Eosinophils 2.5 % (0.0-10.0); %Lymphocytes 28.4 % (21.0-51.0); %Monocytes 5.2 % (0.0-10.0); %Neutrophils 62.8 % (42.0-75.0); Mean Corpuscular HGB CONC 30.9 g/dL (32.0-36.0); Mean Corpuscular Hemoglobin 24.6 pg (27.0-31.0); Mean Corpuscular Volume 79.7 fl (78.0-98.0); Mean Platelet Volume 11.1 fL (7.4-10.4); Platelet Count 228 10x3/uL (130-400); Red Blood Cell (RBC) Count 4.87 mill/uL (4.20-5.40); White Blood Cell (WBC) Count 11.3 10x3/uL (4.8-10.8)
[2023-02-03 14:21] LABS: ALT (SGPT) 13 U/L (8-55); AST (SGOT) 19 U/L (5-34); Albumin 4.5 g/dL (3.4-4.8); Alkaline Phosphatase 109 U/L (40-110); Anion Gap 19 mmol/L (10-20); BUN (Urea Nitrogen) 25 mg/dL (9.8-20.1); Bilirubin, Total 0.2 mg/dL (0.2-1.2); Calc. Creatinine Clearance 0 mL/min (70-130); Calcium 9.9 mg/dL (7.8-10.44); Carbon Dioxide 17 mmol/L (23-31); Chloride 104 mmol/L (98-107); Estimated GFR 34; Globulin 4.5 g/dL (2.4-3.5); Glucose 168 mg/dL (83-110); Sodium 135 mmol/L (136-145)
[2023-02-03] MEDS ORDERED: Acetaminophen 500 MG TAB ONE (15:11)
[2023-02-03] MEDS ORDERED: Aspirin Chewable 81 MG TAB ONE (15:11)
[2023-02-03 18:35] VITALS: BMI 32.5
[2023-02-03] MEDS ORDERED: Cyclobenzaprine 10 MG TAB PO PRN (18:47)
[2023-02-03] MEDS ORDERED: Fluticasone Propionate Nasal Spray 16 gm Bottle NASAL PRN (18:58)
[2023-02-03] MEDS: Acetaminophen 325 MG TAB PO PRN (20:22)
[2023-02-03] MEDS ORDERED: Metoprolol Tartrate 50 MG TAB PO SCH (21:00)
[2023-02-03 22:41] LABS: Bacteria/HPF None Seen HPF (None Seen); Bilirubin Negative (Negative); Blood, Urine Trace (Negative); Clarity Clear (Clear); Glucose, Urine (Dipstick) Normal (Negative); Ketone, Urine Negative (Negative); Leukocyte Negative Leu/uL (Negative); Nitrite Negative (Negative); Protein, Urine (Dipstick) 30 mg/dL (Neg-Trace); RBC/HPF 0-3 HPF (0-3); Specific Gravity, Urine 1.011 (1.002-1.036); Squamous Epithelial 0-3 HPF (0-3); Urobilinogen Normal mg/dL (Less than 2); WBC/HPF 0-3 HPF (0-3); pH, Urine 5.5 (5.0-9.0)
[2023-02-03 23:30] LABS: Magnesium 1.9 mg/dL (1.6-2.6)
[2023-02-04] MEDS: Acetaminophen 325 MG TAB PO PRN ×2 (00:23→10:48)
[2023-02-04 04:53] LABS: #Basophils 0.1 thou/uL (0.0-0.2); #Eosinphils 0.2 thou/uL (0.0-0.7); #Monocytes 0.6 thou/uL (0.11-0.59); %Basophils 0.7 % (0.0-1.0); %Eosinophils 3.3 % (0.0-10.0); %Lymphocytes 46.4 % (21.0-51.0); %Monocytes 7.7 % (0.0-10.0); %Neutrophils 41.6 % (42.0-75.0); Hemoglobin 10.2 g/dL (12.0-16.0); Mean Corpuscular HGB CONC 31.6 g/dL (32.0-36.0); Mean Corpuscular Hemoglobin 24.8 pg (27.0-31.0); Mean Corpuscular Volume 78.6 fl (78.0-98.0); Mean Platelet Volume 11.1 fL (7.4-10.4); Platelet Count 200 10x3/uL (130-400); RBC Distribution Width 18.6 % (11.5-14.5); Red Blood Cell (RBC) Count 4.11 mill/uL (4.20-5.40); White Blood Cell (WBC) Count 7.3 10x3/uL (4.8-10.8)
[2023-02-04 05:16] LABS: Anion Gap 13 mmol/L (10-20); BUN (Urea Nitrogen) 24 mg/dL (9.8-20.1); Calc. Creatinine Clearance 46 mL/min (70-130); Calcium 8.8 mg/dL (7.8-10.44); Carbon Dioxide 21 mmol/L (23-31); Chloride 109 mmol/L (98-107); Estimated GFR 39; Glucose 153 mg/dL (83-110); Potassium 3.8 mmol/L (3.5-5.1); Sodium 139 mmol/L (136-145)
[2023-02-04] MEDS ORDERED: CEFAZOLIN 1 GM VIAL ONE (06:35)
[2023-02-04] MEDS ORDERED: Lidocaine 1% (PF) 30 ML VIAL ONE ×2 (06:35→07:23)
[2023-02-04] MEDS ORDERED: Gentamicin 80 MG/2 ML VIAL ONE (06:35)
[2023-02-04] MEDS ORDERED: Midazolam HCl 2 mg/2 ml Vial ONE ×2 (07:10→07:28)
[2023-02-04] MEDS: Amlodipine 10 MG TAB PO SCH (09:06)
[2023-02-04] MEDS: Aspirin Chewable 81 MG TAB PO SCH (09:06)
[2023-02-04] MEDS: Hydrochlorothiazide 25 MG TAB PO SCH (09:06)
[2023-02-04] MEDS: Losartan 25 MG TAB PO SCH (09:06)
[2023-02-04] MEDS ORDERED: Acetaminophen/Codeine 30-300mg Tablet PO PRN (17:49)
[2023-02-05] MEDS ORDERED: HumaLOG 300 UNITS/3 ML VIAL SC PRN ×2 (03:29)
[2023-02-05] MEDS ORDERED: Dextrose 5% in Water 1,000 ML IV PRN (03:29)
[2023-02-05] MEDS ORDERED: Dextrose 50% Abboject 50 ML SYRINGE SLOW IVP PRN (03:29)
[2023-02-05 07:35] LABS: #Eosinphils 0.2 thou/uL (0.0-0.7); #Monocytes 0.6 thou/uL (0.11-0.59); #Neutrophils 3.7 thou/uL (1.40-6.50); %Basophils 0.6 % (0.0-1.0); %Eosinophils 3.6 % (0.0-10.0); %Monocytes 9.7 % (0.0-10.0); %Neutrophils 56.8 % (42.0-75.0); Hemoglobin 9.9 g/dL (12.0-16.0); Mean Corpuscular HGB CONC 30.2 g/dL (32.0-36.0); Mean Corpuscular Volume 79.4 fl (78.0-98.0); Mean Platelet Volume 10.6 fL (7.4-10.4); Platelet Count 165 10x3/uL (130-400); RBC Distribution Width 18.9 % (11.5-14.5); Red Blood Cell (RBC) Count 4.13 mill/uL (4.20-5.40); White Blood Cell (WBC) Count 6.6 10x3/uL (4.8-10.8)
[2023-02-05 07:56] LABS: ALT (SGPT) 7 U/L (8-55); AST (SGOT) 12 U/L (5-34); Albumin 3.6 g/dL (3.4-4.8); Alkaline Phosphatase 78 U/L (40-110); Anion Gap 13 mmol/L (10-20); BUN (Urea Nitrogen) 20 mg/dL (9.8-20.1); Bilirubin, Total 0.3 mg/dL (0.2-1.2); Calc. Creatinine Clearance 46 mL/min (70-130); Calcium 8.7 mg/dL (7.8-10.44); Carbon Dioxide 21 mmol/L (23-31); Chloride 107 mmol/L (98-107); Estimated GFR 40; Globulin 3.2 g/dL (2.4-3.5); Glucose 183 mg/dL (83-110); Potassium 3.8 mmol/L (3.5-5.1); Protein, Total 6.8 g/dL (5.8-8.1); Sodium 137 mmol/L (136-145)
[2023-02-05] MEDS: Aspirin Chewable 81 MG TAB PO SCH (08:50)
[2023-02-05] MEDS: Losartan 25 MG TAB PO SCH (08:50)
[2023-02-05] MEDS: Hydrochlorothiazide 25 MG TAB PO SCH (08:50)
[2023-02-05] MEDS: Amlodipine 10 MG TAB PO SCH (08:50)
[2023-02-05 11:49] VITALS: BP 150/70; TEMP 98.6
== END 2023-02-05 16:00 | disposition home or self-care (01) | DRG 243 ==
LOC: ERS 12:39 → 2SW 18:13 → OBSVTOIN 02-05 08:37
PROVIDERS: ADMIT Emergency Medicine; ATTEND Emergency Medicine
PROC: 0JH606Z Insertion of Pacemaker, Dual Chamber into Chest Subcutaneous Tissue and Fascia, Open Approach (ICD-10-PCS; principal; 2023-02-04)
PROC: 02H63JZ Insertion of Pacemaker Lead into Right Atrium, Percutaneous Approach (ICD-10-PCS; 2023-02-04)
PROC: 02HK3JZ Insertion of Pacemaker Lead into Right Ventricle, Percutaneous Approach (ICD-10-PCS; 2023-02-04)
DX: I49.5 Sick sinus syndrome (principal); I13.0 Hypertensive heart and chronic kidney disease with heart failure and stage 1 through stage 4 chronic kidney disease, or unspecified chronic kidney disease; I50.32 Chronic diastolic (congestive) heart failure; E11.22 Type 2 diabetes mellitus with diabetic chronic kidney disease; E78.5 Hyperlipidemia, unspecified; K58.9 Irritable bowel syndrome, unspecified; I25.10 Atherosclerotic heart disease of native coronary artery without angina pectoris; G43.909 Migraine, unspecified, not intractable, without status migrainosus; M19.90 Unspecified osteoarthritis, unspecified site; G89.29 Other chronic pain; M54.50 Low back pain, unspecified; I44.1 Atrioventricular block, second degree; N18.32 Chronic kidney disease, stage 3b; D50.9 Iron deficiency anemia, unspecified; G47.00 Insomnia, unspecified; K21.9 Gastro-esophageal reflux disease without esophagitis; Z90.49 Acquired absence of other specified parts of digestive tract; Z88.2 Allergy status to sulfonamides; Z88.1 Allergy status to other antibiotic agents; Z91.041 Radiographic dye allergy status; Z79.82 Long term (current) use of aspirin; Z79.899 Other long term (current) drug therapy; Z79.4 Long term (current) use of insulin; Z79.84 Long term (current) use of oral hypoglycemic drugs; Z90.710 Acquired absence of both cervix and uterus; Z90.722 Acquired absence of ovaries, bilateral; Z83.3 Family history of diabetes mellitus; Z80.1 Family history of malignant neoplasm of trachea, bronchus and lung
CPT/HCPCS: 33208; 36415; 36416; 71045; 80048; 80053; 81003; 81015; 83735; 84443; 84484; 85025; 93005; 93010; 93798; 96360; 96361; 99152; 99153; C1785; C1898; G0378; J0690; J1580; J2001; J2250

== ENCOUNTER 2023-06-08 13:29 | Outpatient (CLI) | payer MEDICARE | END 2023-06-08 13:30 | disposition home or self-care (01) | LOC: BICRAD 13:29 | PROVIDERS: ATTEND Family Medicine | DX: R10.30 Lower abdominal pain, unspecified (principal) | CPT/HCPCS: 36415; 74018; 80053; 85025; 86140 ==

== ENCOUNTER 2023-12-03 12:25 | Outpatient (CLI) | payer MEDICARE | END 2023-12-03 12:26 | disposition home or self-care (01) | LOC: BICMAMMO 12:25 | PROVIDERS: ATTEND Student in an Organized Health Care Education/Training Program | DX: Z12.31 Encounter for screening mammogram for malignant neoplasm of breast (principal); Z13.820 Encounter for screening for osteoporosis; M17.12 Unilateral primary osteoarthritis, left knee; M85.89 Other specified disorders of bone density and structure, multiple sites; Z91.89 Other specified personal risk factors, not elsewhere classified | CPT/HCPCS: 77063; 77067; 77080 ==

== ENCOUNTER 2024-07-31 07:54 | Outpatient (CLI) | payer MEDICARE ==
[2024-07-31] MEDS ORDERED: Regadenoson 0.4 MG/5 ML SYRINGE ONE (09:51)
== END 2024-07-31 07:55 | disposition home or self-care (01) ==
LOC: NM 07:54
PROVIDERS: ATTEND Physician Assistant Medical
DX: R07.9 Chest pain, unspecified (principal)
CPT/HCPCS: 78452; 93017; A9500; J2785 ×2

== ENCOUNTER 2025-05-02 12:12 | Observation (INO) | payer MEDICARE ==
[2025-05-02 13:31] LABS: #Basophils 0.06 10x3/uL (0.0-0.2); #Eosinophils 0.48 10x3/uL (0.0-0.7); #Monocytes 0.55 10x3/uL (0.11-0.59); #Neutrophils 4.29 10x3/uL (1.40-6.50); %Basophils 0.8 % (0.0-1.0); %Eosinophils 6.2 % (0.0-10.0); %Lymphocytes 30.1 % (21.0-51.0); %Monocytes 7.1 % (0.0-10.0); %Neutrophils 55.5 % (42.0-75.0); Hematocrit 33.1 % (36.0-47.0); Hemoglobin 10.9 g/dL (12.0-16.0); Mean Corpuscular Hemoglobin 25.3 pg (27.0-31.0); Mean Corpuscular Volume 76.8 fL (78.0-98.0); Platelet Count 199 10x3/uL (130-400); Red Blood Cell (RBC) Count 4.31 mill/uL (4.20-5.40); White Blood Cell (WBC) Count 7.72 10x3/uL (4.8-10.8)
[2025-05-02 13:58] LABS: Troponin I Less than 0.010 ng/mL (< 0.028)
[2025-05-02] MEDS ORDERED: Nitroglycerin 0.4 MG TAB 1 EACH ONE (14:03)
[2025-05-02] MEDS ORDERED: Aspirin Chewable 81 MG TAB ONE (14:03)
[2025-05-02 14:23] LABS: ALT (SGPT) 11 U/L (Less than 34); AST (SGOT) 22 U/L (11-34); Albumin 4.2 g/dL (3.1-4.5); Alkaline Phosphatase 109 U/L (40-110); Anion Gap 16 mmol/L (10-20); BUN (Urea Nitrogen) 31 mg/dL (9.8-20.1); Bilirubin, Total 0.4 mg/dL (0.3-1.2); Calc. Creatinine Clearance 0 mL/min (70-130); Calcium 9.4 mg/dL (7.8-10.44); Carbon Dioxide 18 mmol/L (23-31); Chloride 108 mmol/L (98-107); Globulin 4.2 g/dL (2.4-3.5); Glucose 180 mg/dL (83-110); Lipase 57 U/L (8-78); Potassium 4.4 mmol/L (3.5-5.1); Sodium 138 mmol/L (136-145)
[2025-05-02] MEDS ORDERED: Dextrose 50% Abboject 50 ML SYRINGE SLOW IVP PRN (17:36)
[2025-05-02] MEDS ORDERED: Glucagon 1 MG/ML KIT IM PRN (17:36)
[2025-05-02 17:43] VITALS: BMI 32.1
[2025-05-02 18:48] LABS: #Basophils 0.06 10x3/uL (0.0-0.2); #Eosinophils 0.36 10x3/uL (0.0-0.7); #Monocytes 0.56 10x3/uL (0.11-0.59); #Neutrophils 4.77 10x3/uL (1.40-6.50); %Basophils 0.7 % (0.0-1.0); %Eosinophils 4.1 % (0.0-10.0); %Lymphocytes 34.5 % (21.0-51.0); %Monocytes 6.4 % (0.0-10.0); %Neutrophils 54.1 % (42.0-75.0); Hematocrit 33.8 % (36.0-47.0); Hemoglobin 11.2 g/dL (12.0-16.0); Mean Corpuscular Hemoglobin 25.3 pg (27.0-31.0); Mean Corpuscular Volume 76.5 fL (78.0-98.0); Platelet Count 157 10x3/uL (130-400); Red Blood Cell (RBC) Count 4.42 mill/uL (4.20-5.40); White Blood Cell (WBC) Count 8.81 10x3/uL (4.8-10.8)
[2025-05-02 19:12] LABS: ALT (SGPT) 12 U/L (Less than 34); AST (SGOT) 19 U/L (11-34); Albumin 4.0 g/dL (3.1-4.5); Alkaline Phosphatase 105 U/L (40-110); Anion Gap 15 mmol/L (10-20); BUN (Urea Nitrogen) 30 mg/dL (9.8-20.1); Bilirubin, Total 0.3 mg/dL (0.3-1.2); Calc. Creatinine Clearance 41 mL/min (70-130); Calcium 9.2 mg/dL (7.8-10.44); Carbon Dioxide 18 mmol/L (23-31); Chloride 109 mmol/L (98-107); Globulin 4.1 g/dL (2.4-3.5); Glucose 119 mg/dL (83-110); Potassium 4.1 mmol/L (3.5-5.1); Sodium 138 mmol/L (136-145)
[2025-05-02 19:15] LABS: Troponin I Less than 0.010 ng/mL (< 0.028)
[2025-05-02] MEDS: Melatonin 3 MG TAB PO PRN (20:31)
[2025-05-02] MEDS: Nitroglycerin 0.4 MG TAB (25 Tab Bottle) SL PRN (20:32)
[2025-05-02] MEDS: Acetaminophen 325 MG TAB PO PRN (20:32)
[2025-05-02 20:58] LABS: Troponin I Less than 0.010 ng/mL (< 0.028)
[2025-05-03 05:14] LABS: #Basophils 0.05 10x3/uL (0.0-0.2); #Eosinophils 0.37 10x3/uL (0.0-0.7); #Monocytes 0.50 10x3/uL (0.11-0.59); #Neutrophils 3.29 10x3/uL (1.40-6.50); %Basophils 0.7 % (0.0-1.0); %Eosinophils 5.1 % (0.0-10.0); %Lymphocytes 41.6 % (21.0-51.0); %Monocytes 6.9 % (0.0-10.0); %Neutrophils 45.6 % (42.0-75.0); Hematocrit 30.6 % (36.0-47.0); Hemoglobin 9.9 g/dL (12.0-16.0); Mean Corpuscular Hemoglobin 25.1 pg (27.0-31.0); Mean Corpuscular Volume 77.5 fL (78.0-98.0); Platelet Count 187 10x3/uL (130-400); Red Blood Cell (RBC) Count 3.95 mill/uL (4.20-5.40); White Blood Cell (WBC) Count 7.22 10x3/uL (4.8-10.8)
[2025-05-03 05:32] LABS: ALT (SGPT) 10 U/L (Less than 34); AST (SGOT) 22 U/L (11-34); Albumin 3.7 g/dL (3.1-4.5); Alkaline Phosphatase 96 U/L (40-110); Anion Gap 15 mmol/L (10-20); BUN (Urea Nitrogen) 29 mg/dL (9.8-20.1); Bilirubin, Total 0.4 mg/dL (0.3-1.2); Calc. Creatinine Clearance 41 mL/min (70-130); Calcium 9.1 mg/dL (7.8-10.44); Carbon Dioxide 18 mmol/L (23-31); Cardiac Risk 3.3 (Less than 4.5); Chloride 108 mmol/L (98-107); Cholesterol 160 mg/dl (< 200 Desired); Globulin 3.6 g/dL (2.4-3.5); Glucose 115 mg/dL (83-110); HDL Cholesterol 48 mg/dL (>60 Neg Risk); LDL Cholesterol, Calculated 82 mg/dL; Potassium 4.2 mmol/L (3.5-5.1); Sodium 137 mmol/L (136-145); Triglycerides 148 mg/dL (Less than 150)
[2025-05-03] MEDS: Enoxaparin 40 MG (0.4 mL) SYRINGE SC SCH (09:56)
[2025-05-03] MEDS: Losartan 25 MG TAB PO SCH (09:56)
[2025-05-03] MEDS: Isosorbide Mononitrate 30 MG ER.TAB.S PO SCH (09:56)
[2025-05-03] MEDS: Ezetimibe 10 MG TAB PO SCH (09:56)
[2025-05-03] MEDS: Rosuvastatin 5 MG TAB PO SCH (09:57)
[2025-05-03] MEDS: Aspirin Chewable 81 MG TAB PO SCH (09:57)
[2025-05-03] MEDS: Pantoprazole 40 MG DR.TAB PO SCH (09:57)
[2025-05-03] MEDS: Calcitriol 0.25 MCG CAP PO SCH (09:57)
[2025-05-03 11:56] VITALS: BP 157/73; TEMP 97.8
== END 2025-05-03 18:00 | disposition home or self-care (01) ==
LOC: ERS 12:12 → OBS 16:02
PROVIDERS: ADMIT Family Medicine; ATTEND Family Medicine
DX: R79.89 Other specified abnormal findings of blood chemistry (principal); E11.22 Type 2 diabetes mellitus with diabetic chronic kidney disease; I13.0 Hypertensive heart and chronic kidney disease with heart failure and stage 1 through stage 4 chronic kidney disease, or unspecified chronic kidney disease; N18.32 Chronic kidney disease, stage 3b; I50.30 Unspecified diastolic (congestive) heart failure; E78.5 Hyperlipidemia, unspecified; K21.9 Gastro-esophageal reflux disease without esophagitis; Z79.82 Long term (current) use of aspirin; Z79.899 Other long term (current) drug therapy; Z88.1 Allergy status to other antibiotic agents; Z91.041 Radiographic dye allergy status; Z88.2 Allergy status to sulfonamides
CPT/HCPCS: 71046; 80053 ×2; 80061; 82962 ×2; 83036; 83690; 84484 ×2; 85025 ×2; 93005; 94760; 96374; 99285; J1650; J3010; 36415; 36416; 84443

== ENCOUNTER 2025-06-19 11:28 | Outpatient (CLI) | payer MEDICARE ==
[2025-06-19 13:35] LABS: #Basophils 0.08 10x3/uL (0.0-0.2); #Eosinophils 0.27 10x3/uL (0.0-0.7); #Monocytes 0.65 10x3/uL (0.11-0.59); #Neutrophils 6.43 10x3/uL (1.40-6.50); %Basophils 0.8 % (0.0-1.0); %Eosinophils 2.8 % (0.0-10.0); %Lymphocytes 22.9 % (21.0-51.0); %Monocytes 6.7 % (0.0-10.0); %Neutrophils 66.1 % (42.0-75.0); Hematocrit 36.6 % (36.0-47.0); Hemoglobin 11.8 g/dL (12.0-16.0); Mean Corpuscular Hemoglobin 25.2 pg (27.0-31.0); Mean Corpuscular Volume 78.2 fL (78.0-98.0); Platelet Count 212 10x3/uL (130-400); Red Blood Cell (RBC) Count 4.68 mill/uL (4.20-5.40); White Blood Cell (WBC) Count 9.73 10x3/uL (4.8-10.8)
[2025-06-19 14:03] LABS: ALT (SGPT) 12 U/L (Less than 34); AST (SGOT) 16 U/L (11-34); Albumin 4.1 g/dL (3.1-4.5); Alkaline Phosphatase 119 U/L (40-110); Anion Gap 20 mmol/L (10-20); BUN (Urea Nitrogen) 33 mg/dL (9.8-20.1); Bilirubin, Total 0.4 mg/dL (0.3-1.2); Calc. Creatinine Clearance 0 mL/min (70-130); Calcium 10.0 mg/dL (7.8-10.44); Carbon Dioxide 17 mmol/L (23-31); Chloride 102 mmol/L (98-107); Globulin 4.1 g/dL (2.4-3.5); Glucose 225 mg/dL (83-110); Potassium 4.5 mmol/L (3.5-5.1); Sodium 134 mmol/L (136-145)
== END 2025-06-19 11:29 | disposition home or self-care (01) ==
LOC: LABBT 11:28
PROVIDERS: ATTEND Internal Medicine Cardiovascular Disease
DX: R07.9 Chest pain, unspecified (principal)
CPT/HCPCS: 80053; 85025

== ENCOUNTER 2025-06-21 15:05 | Inpatient (IN) | payer MEDICARE ==
[2025-06-21] MEDS ORDERED: Nitroglycerin 0.4 MG TAB (25 Tab Bottle) SL PRN (17:46)
[2025-06-21] MEDS ORDERED: Cyclobenzaprine 10 MG TAB PO PRN (17:46)
[2025-06-21 17:47] VITALS: BMI 32.1
[2025-06-21] MEDS: Sodium Bicarbonate Tab 325 MG TAB PO SCH (20:16)
[2025-06-21 20:32] LABS: ALT (SGPT) 10 U/L (Less than 34); AST (SGOT) 16 U/L (11-34); Albumin 4.1 g/dL (3.1-4.5); Alkaline Phosphatase 130 U/L (40-110); Anion Gap 17 mmol/L (10-20); BUN (Urea Nitrogen) 40 mg/dL (9.8-20.1); Bilirubin, Total 0.4 mg/dL (0.3-1.2); Calc. Creatinine Clearance 31 mL/min (70-130); Calcium 9.8 mg/dL (7.8-10.44); Carbon Dioxide 17 mmol/L (23-31); Chloride 104 mmol/L (98-107); Globulin 3.9 g/dL (2.4-3.5); Glucose 452 mg/dL (83-110); Potassium 5.0 mmol/L (3.5-5.1); Sodium 133 mmol/L (136-145)
[2025-06-21] MEDS: Acetaminophen 325 MG TAB PO SCH (21:03)
[2025-06-22 05:06] LABS: #Basophils 0.03 10x3/uL (0.0-0.2); #Eosinophils Less than 0.03 10x3/uL (0.0-0.7); #Monocytes 0.21 10x3/uL (0.11-0.59); #Neutrophils 18.50 10x3/uL (1.40-6.50); %Basophils 0.1 % (0.0-1.0); %Eosinophils 0.0 % (0.0-10.0); %Lymphocytes 5.8 % (21.0-51.0); %Monocytes 1.0 % (0.0-10.0); %Neutrophils 92.4 % (42.0-75.0); Hematocrit 31.3 % (36.0-47.0); Hemoglobin 10.2 g/dL (12.0-16.0); Mean Corpuscular Hemoglobin 25.5 pg (27.0-31.0); Mean Corpuscular Volume 78.3 fL (78.0-98.0); Platelet Count 179 10x3/uL (130-400); Red Blood Cell (RBC) Count 4.00 mill/uL (4.20-5.40); White Blood Cell (WBC) Count 20.04 10x3/uL (4.8-10.8)
[2025-06-22 05:23] LABS: ALT (SGPT) 7 U/L (Less than 34); AST (SGOT) 13 U/L (11-34); Albumin 3.6 g/dL (3.1-4.5); Alkaline Phosphatase 107 U/L (40-110); Anion Gap 14 mmol/L (10-20); BUN (Urea Nitrogen) 40 mg/dL (9.8-20.1); Bilirubin, Total 0.3 mg/dL (0.3-1.2); Calc. Creatinine Clearance 36 mL/min (70-130); Calcium 9.3 mg/dL (7.8-10.44); Carbon Dioxide 19 mmol/L (23-31); Cardiac Risk 2.7 (Less than 4.5); Chloride 107 mmol/L (98-107); Cholesterol 179 mg/dl (< 200 Desired); Globulin 3.6 g/dL (2.4-3.5); Glucose 257 mg/dL (83-110); HDL Cholesterol 66 mg/dL (>60 Neg Risk); LDL Cholesterol, Calculated 103 mg/dL; Potassium 4.9 mmol/L (3.5-5.1); Sodium 135 mmol/L (136-145); Triglycerides 48 mg/dL (Less than 150)
[2025-06-22] MEDS: Aspirin Chewable 81 MG TAB PO SCH (08:00)
[2025-06-22] MEDS: Calcitriol 0.25 MCG CAP PO SCH (08:13)
[2025-06-22] MEDS: Ezetimibe 10 MG TAB PO SCH (08:13)
[2025-06-22] MEDS: Pantoprazole 40 MG DR.TAB PO SCH (08:13)
[2025-06-22] MEDS: Losartan 25 MG TAB PO SCH (08:13)
[2025-06-22] MEDS: NIFEdipine XL 60 MG ER.TAB PO SCH (08:14)
[2025-06-22] MEDS: Isosorbide Mononitrate 30 MG ER.TAB.S PO SCH (08:14)
[2025-06-22] MEDS ORDERED: Adenosine 6 mg (2 mL) VIAL ONE (12:34)
[2025-06-22] MEDS ORDERED: EPINEPHrine 1 MG/10 ML Abboject SYRINGE ONE (12:34)
[2025-06-22] MEDS ORDERED: Nitroglycerin 50 MG/250 ML BOT 0 ML ONE (12:35)
[2025-06-22] MEDS ORDERED: Heparin 10,000 UNITS/ 10 ML VIAL ONE (12:35)
[2025-06-22] MEDS ORDERED: PHENYLEPHRINE-NS 100 MCG/ML 10 ML SYRINGE ONE (12:35)
[2025-06-22] MEDS ORDERED: Lidocaine 1% (PF) 30 ML VIAL ONE (12:35)
[2025-06-22] MEDS ORDERED: Iopamidol 370 76% 100 ML VIAL ONE (12:51)
[2025-06-22] MEDS ORDERED: Mag-Al 1200 mg/1200 mg/30 ML UDCUP PO PRN (14:10)
[2025-06-22] MEDS ORDERED: Acetaminophen/Codeine 30-300mg Tablet PO PRN (14:10)
[2025-06-22] MEDS ORDERED: Milk Of Magnesia 30 ML UDCUP PO PRN (14:10)
[2025-06-22] MEDS ORDERED: Ondansetron PF 4 MG/2 ML Vial ONE (14:46)
[2025-06-22] MEDS ORDERED: hydrALAZINE 20 MG/ML VIAL ONE (18:07)
[2025-06-23 04:54] LABS: #Basophils Less than 0.03 10x3/uL (0.0-0.2); #Eosinophils Less than 0.03 10x3/uL (0.0-0.7); #Monocytes 0.21 10x3/uL (0.11-0.59); #Neutrophils 12.90 10x3/uL (1.40-6.50); %Basophils 0.1 % (0.0-1.0); %Eosinophils 0.1 % (0.0-10.0); %Lymphocytes 7.0 % (21.0-51.0); %Monocytes 1.5 % (0.0-10.0); %Neutrophils 90.6 % (42.0-75.0); Hematocrit 29.3 % (36.0-47.0); Hemoglobin 9.6 g/dL (12.0-16.0); Mean Corpuscular Hemoglobin 25.3 pg (27.0-31.0); Mean Corpuscular Volume 77.3 fL (78.0-98.0); Platelet Count 171 10x3/uL (130-400); Red Blood Cell (RBC) Count 3.79 mill/uL (4.20-5.40); White Blood Cell (WBC) Count 14.22 10x3/uL (4.8-10.8)
[2025-06-23 05:12] LABS: ALT (SGPT) 8 U/L (Less than 34); AST (SGOT) 11 U/L (11-34); Albumin 3.3 g/dL (3.1-4.5); Alkaline Phosphatase 96 U/L (40-110); Anion Gap 18 mmol/L (10-20); BUN (Urea Nitrogen) 34 mg/dL (9.8-20.1); Bilirubin, Total 0.4 mg/dL (0.3-1.2); Calc. Creatinine Clearance 39 mL/min (70-130); Calcium 8.7 mg/dL (7.8-10.44); Carbon Dioxide 17 mmol/L (23-31); Chloride 109 mmol/L (98-107); Globulin 3.3 g/dL (2.4-3.5); Glucose 286 mg/dL (83-110); Potassium 4.7 mmol/L (3.5-5.1); Sodium 139 mmol/L (136-145)
[2025-06-23 07:28] VITALS: BP 135/61; TEMP 98.7
== END 2025-06-23 11:51 | disposition home or self-care (01) | DRG 322 ==
LOC: INTOOBSV 15:05 → UNDOADMIN 15:05 → 2NO 15:05 → OBSVTOIN 06-22 17:12
PROVIDERS: ADMIT Internal Medicine Cardiovascular Disease; ATTEND Internal Medicine Cardiovascular Disease
PROC: 02703DZ Dilation of Coronary Artery, One Artery with Intraluminal Device, Percutaneous Approach (ICD-10-PCS; principal; 2025-06-22)
PROC: 4A023N7 Measurement of Cardiac Sampling and Pressure, Left Heart, Percutaneous Approach (ICD-10-PCS; 2025-06-22)
PROC: B2111ZZ Fluoroscopy of Multiple Coronary Arteries using Low Osmolar Contrast (ICD-10-PCS; 2025-06-22)
DX: R07.9 Chest pain, unspecified (principal); I13.0 Hypertensive heart and chronic kidney disease with heart failure and stage 1 through stage 4 chronic kidney disease, or unspecified chronic kidney disease; I50.32 Chronic diastolic (congestive) heart failure; N18.30 Chronic kidney disease, stage 3 unspecified; E78.5 Hyperlipidemia, unspecified; I25.10 Atherosclerotic heart disease of native coronary artery without angina pectoris; Z98.890 Other specified postprocedural states; K21.9 Gastro-esophageal reflux disease without esophagitis; E11.9 Type 2 diabetes mellitus without complications; M19.90 Unspecified osteoarthritis, unspecified site; Z88.8 Allergy status to other drugs, medicaments and biological substances; Z79.899 Other long term (current) drug therapy
CPT/HCPCS: 36415; 51701; 80053; 80061; 85025; 85347; 92928; 92929; 93005; 93010; 93454; 99152; 99153; C1769; C1874; C1887; C1894; C1984; C9600; G0378; J0153; J0165; J0360; J0461; J1644; J1815; J2250; J7030; J7512; Q9967

== ENCOUNTER 2025-07-19 13:36 | Emergency (ER) | payer MEDICARE ==
[2025-07-19 16:24] LABS: #Basophils 0.05 10x3/uL (0.0-0.2); #Eosinophils 0.20 10x3/uL (0.0-0.7); #Monocytes 0.47 10x3/uL (0.11-0.59); #Neutrophils 3.08 10x3/uL (1.40-6.50); %Basophils 0.9 % (0.0-1.0); %Eosinophils 3.5 % (0.0-10.0); %Lymphocytes 33.1 % (21.0-51.0); %Monocytes 8.2 % (0.0-10.0); %Neutrophils 53.6 % (42.0-75.0); Hematocrit 35.2 % (36.0-47.0); Hemoglobin 11.0 g/dL (12.0-16.0); Mean Corpuscular Hemoglobin 24.5 pg (27.0-31.0); Mean Corpuscular Volume 78.4 fL (78.0-98.0); Platelet Count 232 10x3/uL (130-400); Red Blood Cell (RBC) Count 4.49 mill/uL (4.20-5.40); White Blood Cell (WBC) Count 5.74 10x3/uL (4.8-10.8)
[2025-07-19 16:44] LABS: ALT (SGPT) 13 U/L (Less than 34); AST (SGOT) 24 U/L (11-34); Albumin 4.1 g/dL (3.1-4.5); Alkaline Phosphatase 109 U/L (40-110); Anion Gap 15 mmol/L (10-20); BUN (Urea Nitrogen) 33 mg/dL (9.8-20.1); Bilirubin, Total 0.2 mg/dL (0.3-1.2); Calc. Creatinine Clearance 0 mL/min (70-130); Calcium 9.8 mg/dL (7.8-10.44); Carbon Dioxide 22 mmol/L (23-31); Chloride 104 mmol/L (98-107); Globulin 4.1 g/dL (2.4-3.5); Glucose 221 mg/dL (83-110); Potassium 3.6 mmol/L (3.5-5.1); Sodium 137 mmol/L (136-145)
== END 2025-07-19 18:40 | disposition home or self-care (01) ==
LOC: ERS 13:36
DX: M25.561 Pain in right knee (principal); E11.65 Type 2 diabetes mellitus with hyperglycemia; D64.9 Anemia, unspecified; I12.9 Hypertensive chronic kidney disease with stage 1 through stage 4 chronic kidney disease, or unspecified chronic kidney disease; E11.22 Type 2 diabetes mellitus with diabetic chronic kidney disease; N18.9 Chronic kidney disease, unspecified; I25.10 Atherosclerotic heart disease of native coronary artery without angina pectoris; Z79.82 Long term (current) use of aspirin; Z79.899 Other long term (current) drug therapy; Z79.84 Long term (current) use of oral hypoglycemic drugs; Z79.4 Long term (current) use of insulin; R60.0 Localized edema
CPT/HCPCS: 76936; 80053; 85025; 93971; 96374; 99284; J2270